=== PATIENT | male | born 1970 | race Caucasian/White ===

== ENCOUNTER 2019-04-17 12:35 | Inpatient (IN) | payer MEDICARE, OTHER ==
[2019-04-17 16:06] LABS: ADD MAN DIFF? NO
[2019-04-17 16:07] LABS: WHITE BLOOD COUNT 14.5 10^3/ul (4.8-10.8)
[2019-04-17 16:07] LABS: ABNORMAL IP MESSAGE 1; BASOPHILS % 0.1 % (0.0-2.0); HEMATOCRIT 53.2 % (42.0-52.0); HEMOGLOBIN 17.7 g/dl (14.0-18.0); LYMPHOCYTES # 0.4 10^3/ul (0.8-2.9); LYMPHOCYTES % 2.5 % (15.0-51.0); MEAN CORPUSCULAR HGB CONC 33.3 g/dl (32.0-37.0); MEAN CORPUSCULAR VOLUME 87.2 fl (82.0-101.0); MEAN PLATELET VOLUME 10.2 fl (7.4-10.4); MONOCYTE # 1.4 10^3/ul (0.3-0.9); MONOCYTES % 9.9 % (0.0-11.0); NEUTROPHIL # 12.6 10^3/ul (1.6-7.5); NEUTROPHILS % 86.8 % (39.0-77.0); PLATELET COUNT 260 10^3/UL (140-415); POSITIVE DIFF @See below; RED CELL DISTRIBUTION WIDTH 14.6 % (11.5-14.5)
[2019-04-17] MEDS: morphine 4 MG/ML VIAL IV (16:12)
[2019-04-17] MEDS: ONDANSETRON 4 MG INJ IV (16:12)
[2019-04-17 16:26] LABS: INR 1.19; PROTIME 15.2 Sec (11.9-14.9); PT RATIO 1.2
[2019-04-17 16:27] LABS: PARTIAL THROMBOPLASTIN TIME 28.2 Sec (23.0-35.0)
[2019-04-17 16:29] LABS: ALANINE AMINOTRANSFERASE 19 IU/L (13-69); ALBUMIN 4.4 g/dl (3.3-4.9); ALBUMIN/GLOBULIN RATIO 1.07; ALKALINE PHOSPHATASE 98 IU/L (42-121); ANION GAP 21 (5-13); ASPARTATE AMINO TRANSFERASE 25 IU/L (15-46); BILIRUBIN,INDIRECT 0.5 mg/dl (0-1.1); BILIRUBIN,TOTAL 0.5 mg/dl (0.2-1.3); BLOOD UREA NITROGEN 34 mg/dl (7-20); CALCIUM 9.7 mg/dl (8.4-10.2); CARBON DIOXIDE 18 mmol/L (21-31); CHLORIDE 107 mmol/L (97-110); CREATININE 2.31 mg/dl (0.61-1.24); Estimated GFR 30 mL/min (>60); GLUCOSE 175 mg/dl (70-220); LIPASE 116 U/L (23-300); POTASSIUM 3.8 mmol/L (3.5-5.1); SODIUM 146 mmol/L (135-144); TOTAL PROTEIN 8.5 g/dl (6.1-8.1)
[2019-04-17 16:41] LABS: TROPONIN-I 0.021 ng/ml (0.000-0.120)
[2019-04-17] MEDS ORDERED: ONDANSETRON 4 MG INJ IV (17:30)
[2019-04-17] MEDS ORDERED: ACETAMINOPHEN 325 MG TAB PO ×2 (17:30→18:30)
[2019-04-17] MEDS: SOD CHLORIDE 0.9% 1,000 ML IV ×2 (17:54→22:23)
[2019-04-17] MEDS ORDERED: NACL 0.9% 3 ML SYG IV (18:30)
[2019-04-17] MEDS ORDERED: hydrOXYzine HCL 25 MG TAB PO (18:30)
[2019-04-17] MEDS: QUETIAPINE 100 MG TAB NGT (19:04)
[2019-04-17] MEDS: DIVALPROEX (EC) 500 MG TAB PO (19:04)
[2019-04-17] MEDS: BENZTROPINE 1 MG TAB NGT (19:05)
[2019-04-17] MEDS: DEXTROSE 5%-0.45% NACL 1,000 ML IV (21:19)
[2019-04-17] MEDS: FAMOTIDINE 20 MG INJ IV (21:19)
[2019-04-17] MEDS: QUETIAPINE 25 MG TAB NGT (21:47)
[2019-04-17] MEDS: DIAZEPAM 5 MG TAB NGT (21:47)
[2019-04-18] MEDS: ONDANSETRON 4 MG INJ IV (02:14)
[2019-04-18] MEDS: morphine 2 MG INJ IV (02:15)
[2019-04-18 05:43] LABS: ADD MAN DIFF? NO
[2019-04-18 05:48] LABS: ABNORMAL IP MESSAGE 1; BASOPHILS % 0.2 % (0.0-2.0); HEMATOCRIT 42.2 % (42.0-52.0); HEMOGLOBIN 14.1 g/dl (14.0-18.0); LYMPHOCYTES # 0.2 10^3/ul (0.8-2.9); LYMPHOCYTES % 2.1 % (15.0-51.0); MEAN CORPUSCULAR HEMOGLOBIN 28.8 pg (29.0-33.0); MEAN CORPUSCULAR HGB CONC 33.4 g/dl (32.0-37.0); MEAN CORPUSCULAR VOLUME 86.1 fl (82.0-101.0); MEAN PLATELET VOLUME 10.2 fl (7.4-10.4); MONOCYTE # 2.2 10^3/ul (0.3-0.9); NEUTROPHIL # 8.3 10^3/ul (1.6-7.5); PLATELET COUNT 181 10^3/UL (140-415); POSITIVE DIFF @See below; RED CELL DISTRIBUTION WIDTH 14.9 % (11.5-14.5)
[2019-04-18 05:48] LABS: WHITE BLOOD COUNT 10.8 10^3/ul (4.8-10.8)
[2019-04-18 06:07] LABS: ALANINE AMINOTRANSFERASE 22 IU/L (13-69); ALBUMIN 2.5 g/dl (3.3-4.9); ALKALINE PHOSPHATASE 55 IU/L (42-121); ANION GAP 8 (5-13); ASPARTATE AMINO TRANSFERASE 21 IU/L (15-46); BILIRUBIN,INDIRECT 0.5 mg/dl (0-1.1); BILIRUBIN,TOTAL 0.5 mg/dl (0.2-1.3); BLOOD UREA NITROGEN 49 mg/dl (7-20); CALCIUM 7.1 mg/dl (8.4-10.2); CARBON DIOXIDE 20 mmol/L (21-31); CHLORIDE 117 mmol/L (97-110); CREATININE 1.49 mg/dl (0.61-1.24); Estimated GFR 50 mL/min (>60); GLUCOSE 99 mg/dl (70-220); MAGNESIUM 1.6 mg/dl (1.7-2.5); POTASSIUM 4.5 mmol/L (3.5-5.1); SODIUM 145 mmol/L (135-144); TOTAL PROTEIN 5.6 g/dl (6.1-8.1)
[2019-04-18 06:30] LABS: BAND NEUTROPHILS #M 6.3 10^3/ul (0.0-0.6); BAND NEUTROPHILS % (M) 59 % (0-4); LYMPHOCYTES #M 0.3 10^3/ul (0.8-2.9); LYMPHOCYTES % (M) 3 % (15-51); MONOCYTE #M 2.7 10^3/ul (0.3-0.9); MONOCYTES % (M) 25 % (0-11); PLATELET ESTIMATE NORMAL; REACTIVE LYMPHOCYTES #M 0.3 10^3/ul (0.0-0.0); REACTIVE LYMPHOCYTES% (M) 3 % (0-0); SEG NEUT #M 1.8 10^3/ul (1.6-7.5); SEGMENTED NEUTROPHILS (M) % 10 % (39-77); SMUDGE%M 11 % (0-0)
[2019-04-18 07:25] LABS: C-REACTIVE PROTEIN 38.8 mg/dl (0.0-0.9)
[2019-04-18] MEDS: ACETAMINOPHEN 1000MG/100ML IV 100 ML IVPB (08:00)
[2019-04-18] MEDS ORDERED: SOD CHLORIDE 0.9% 1,000 ML IV (08:00)
[2019-04-18] MEDS: PANTOPRAZOLE 40 MG INJ IV (08:00)
[2019-04-18 08:14] LABS: ERYTHROCYTE SEDIMENTATION RATE 22 mm/Hr (0-15)
[2019-04-18] MEDS: SOD CHLORIDE 0.9% 1,000 ML IV ×3 (08:30→14:42)
[2019-04-18] MEDS: CITALOPRAM 20 MG TAB NGT (09:00)
[2019-04-18] MEDS: BENZTROPINE 1 MG TAB NGT ×2 (09:00→20:31)
[2019-04-18] MEDS: QUETIAPINE 100 MG TAB NGT ×2 (09:00→20:31)
[2019-04-18] MEDS: DIAZEPAM 5 MG TAB NGT ×2 (09:00→20:31)
[2019-04-18] MEDS: DIVALPROEX (EC) 500 MG TAB PO ×2 (09:00→20:31)
[2019-04-18] MEDS: PIPER-TAZO 3.375 GM IV (PMX) 100 ML IVPB ×3 (11:57→21:38)
[2019-04-18 13:52] LABS: HEMATOCRIT 38.3 % (42.0-52.0)
[2019-04-18] MEDS: LORAZEPAM 2 MG INJ IV (14:00)
[2019-04-18] MEDS: MAGNESIUM SULFATE 2 GM/50 ML 50 ML IVPB ×2 (14:24→19:00)
[2019-04-18 17:17] LABS: LACTIC ACID 1.8 mmol/L (0.5-2.0)
[2019-04-18] MEDS: DEXTROSE 5%-0.45% NACL 1,000 ML IV ×2 (18:58→19:10)
[2019-04-18] MEDS: PANTOPRAZOLE IV 80 MG in SOD CHLORIDE 0.9% 100 ML IV (20:21)
[2019-04-18] MEDS: FAMOTIDINE 20 MG INJ IV (20:31)
[2019-04-18] MEDS: METHYLPREDNISOLONE 40 MG INJ IV (21:38)
[2019-04-19] MEDS: DEXTROSE 5%-0.45% NACL 1,000 ML IV ×2 (00:25→10:25)
[2019-04-19] MEDS: SOD CHLORIDE 0.9% 500 ML IV (04:55)
[2019-04-19] MEDS: LORAZEPAM 2 MG INJ IV ×2 (05:00→12:54)
[2019-04-19] MEDS: METHYLPREDNISOLONE 40 MG INJ IV ×3 (05:00→21:14)
[2019-04-19] MEDS: PIPER-TAZO 3.375 GM IV (PMX) 100 ML IVPB ×3 (05:08→21:14)
[2019-04-19 05:42] LABS: ADD MAN DIFF? NO
[2019-04-19 05:49] LABS: ABNORMAL IP MESSAGE 1; HEMATOCRIT 39.3 % (42.0-52.0); HEMOGLOBIN 13.5 g/dl (14.0-18.0); MEAN CORPUSCULAR HGB CONC 34.4 g/dl (32.0-37.0); MEAN CORPUSCULAR VOLUME 84.3 fl (82.0-101.0); MEAN PLATELET VOLUME 10.5 fl (7.4-10.4); PLATELET COUNT 175 10^3/UL (140-415); POSITIVE DIFF @See below; RED BLOOD COUNT 4.66 10^6/ul (4.70-6.10); RED CELL DISTRIBUTION WIDTH 14.9 % (11.5-14.5)
[2019-04-19 05:49] LABS: WHITE BLOOD COUNT 6.8 10^3/ul (4.8-10.8)
[2019-04-19 06:07] LABS: ALANINE AMINOTRANSFERASE 36 IU/L (13-69); ALBUMIN 2.9 g/dl (3.3-4.9); ALBUMIN/GLOBULIN RATIO 0.85; ALKALINE PHOSPHATASE 67 IU/L (42-121); ANION GAP 9 (5-13); ASPARTATE AMINO TRANSFERASE 39 IU/L (15-46); BILIRUBIN,INDIRECT 0.6 mg/dl (0-1.1); BILIRUBIN,TOTAL 0.6 mg/dl (0.2-1.3); BLOOD UREA NITROGEN 36 mg/dl (7-20); CALCIUM 7.3 mg/dl (8.4-10.2); CARBON DIOXIDE 21 mmol/L (21-31); CHLORIDE 119 mmol/L (97-110); CREATININE 1.05 mg/dl (0.61-1.24); Estimated GFR > 60 mL/min (>60); GLUCOSE 110 mg/dl (70-220); MAGNESIUM 2.7 mg/dl (1.7-2.5); SODIUM 149 mmol/L (135-144); TOTAL PROTEIN 6.3 g/dl (6.1-8.1)
[2019-04-19] MEDS: PANTOPRAZOLE IV 80 MG in SOD CHLORIDE 0.9% 100 ML IV ×2 (06:26→13:30)
[2019-04-19 07:17] LABS: BAND NEUTROPHILS #M 3.6 10^3/ul (0.0-0.6); BAND NEUTROPHILS % (M) 54 % (0-4); BURR CELLS 1+ (0-0); ERYTHROBLAST% (NRBC) (M) 1 % (0-0); LYMPHOCYTES #M 1.2 10^3/ul (0.8-2.9); LYMPHOCYTES % (M) 18 % (15-51); METAMYELOCYTES #M 0.8 10^3/ul (0.0-0.0); METAMYELOCYTES %M 12 % (0-0); MONOCYTE #M 0.8 10^3/ul (0.3-0.9); MONOCYTES % (M) 12 % (0-11); MYELOCYTES #M 0.1 10^3/ul (0.0-0.0); MYELOCYTES % (M) 2 % (0-0); PLATELET ESTIMATE NORMAL; POIKILOCYTOSIS 1+ (0-0); SEG NEUT #M 0.4 10^3/ul (1.6-7.5); SEGMENTED NEUTROPHILS (M) % 2 % (39-77); SMUDGE%M 12 % (0-0); SPHEROCYTES 1+ (0-0)
[2019-04-19] MEDS: CITALOPRAM 20 MG TAB NGT ×2 (09:00→09:40)
[2019-04-19] MEDS: QUETIAPINE 100 MG TAB NGT ×3 (09:00→20:54)
[2019-04-19] MEDS: BENZTROPINE 1 MG TAB NGT ×3 (09:00→20:54)
[2019-04-19] MEDS: DIAZEPAM 5 MG TAB NGT ×3 (09:00→20:54)
[2019-04-19] MEDS: DIVALPROEX (EC) 500 MG TAB PO ×3 (09:00→20:54)
[2019-04-19 09:09] LABS: ADD UMIC YES; UR ASCORBIC ACID NEGATIVE (NEGATIVE); UR BILIRUBIN (Dip) NEGATIVE (NEGATIVE); UR BLOOD (Dip) NEGATIVE (NEGATIVE); UR CLARITY SLIGHTLY CLOUDY (CLEAR); UR COLOR AMBER (YELLOW); UR GLUCOSE (Dip) NEGATIVE (NEGATIVE); UR KETONES (Dip) TRACE mg/dL (NEGATIVE); UR LEUKOCYTE ESTERASE (Dip) NEGATIVE Leu/ul (NEGATIVE); UR NITRITE (Dip) NEGATIVE (NEGATIVE); UR RBC 1 /HPF (0-5); UR SPECIFIC GRAVITY (Dip) 1.029 (1.003-1.030); UR SQUAMOUS EPITHELIAL CELL FEW /HPF (FEW); UR TOTAL PROTEIN (Dip) 1+ mg/dl (NEGATIVE); UR UROBILINOGEN (Dip) 1+ mg/dL (NEGATIVE); UR WBC 2 /HPF (0-5)
[2019-04-19 09:39] LABS: CREATININE,URINE RANDOM 118.19 mg/dl (20-370); PROTEIN/CREAT RATIO 0.31 RATIO
[2019-04-19 09:41] LABS: CREATININE,URINE RANDOM 116.03 mg/dl (20-370)
[2019-04-19 09:41] LABS: SODIUM,URINE RANDOM 20 mmol/L (30-90)
[2019-04-19 12:29] LABS: HEMOGLOBIN 13.3 g/dl (14.0-18.0)
[2019-04-19] MEDS: SOD CHLORIDE 0.9% 1,000 ML IV (14:52)
[2019-04-19] MEDS: PANTOPRAZOLE IV 80 MG in DEXTROSE 5% 100 ML IV (14:53)
[2019-04-19] MEDS: DEXTROSE 5% 1,000 ML IV (15:50)
[2019-04-19] MEDS: SOD CHLORIDE 0.9% 250 ML IV (16:03)
[2019-04-19 19:56] LABS: HEMOGLOBIN 12.7 g/dl (14.0-18.0)
[2019-04-19 20:13] LABS: ANION GAP 5 (5-13); BLOOD UREA NITROGEN 34 mg/dl (7-20); CALCIUM 7.6 mg/dl (8.4-10.2); CARBON DIOXIDE 24 mmol/L (21-31); CHLORIDE 117 mmol/L (97-110); Estimated GFR > 60 mL/min (>60); GLUCOSE 131 mg/dl (70-220); POTASSIUM 3.7 mmol/L (3.5-5.1); SODIUM 146 mmol/L (135-144)
[2019-04-20] MEDS: PANTOPRAZOLE IV 80 MG in DEXTROSE 5% 100 ML IV ×2 (01:20→12:22)
[2019-04-20 05:44] LABS: ABNORMAL IP MESSAGE 1; HEMATOCRIT 36.9 % (42.0-52.0); HEMOGLOBIN 12.3 g/dl (14.0-18.0); MEAN CORPUSCULAR HEMOGLOBIN 28.5 pg (29.0-33.0); MEAN CORPUSCULAR HGB CONC 33.3 g/dl (32.0-37.0); MEAN CORPUSCULAR VOLUME 85.4 fl (82.0-101.0); MEAN PLATELET VOLUME 10.4 fl (7.4-10.4); PLATELET COUNT 185 10^3/UL (140-415); POSITIVE DIFF @See below; RED BLOOD COUNT 4.32 10^6/ul (4.70-6.10); RED CELL DISTRIBUTION WIDTH 15.3 % (11.5-14.5)
[2019-04-20 05:44] LABS: WHITE BLOOD COUNT 5.1 10^3/ul (4.8-10.8)
[2019-04-20 06:08] LABS: ALANINE AMINOTRANSFERASE 44 IU/L (13-69); ALBUMIN 2.9 g/dl (3.3-4.9); ALKALINE PHOSPHATASE 60 IU/L (42-121); ANION GAP 3 (5-13); ASPARTATE AMINO TRANSFERASE 30 IU/L (15-46); BILIRUBIN,INDIRECT 0.7 mg/dl (0-1.1); BILIRUBIN,TOTAL 0.7 mg/dl (0.2-1.3); BLOOD UREA NITROGEN 32 mg/dl (7-20); CALCIUM 7.8 mg/dl (8.4-10.2); CARBON DIOXIDE 28 mmol/L (21-31); CHLORIDE 116 mmol/L (97-110); CREATININE 0.88 mg/dl (0.61-1.24); Estimated GFR > 60 mL/min (>60); GLUCOSE 158 mg/dl (70-220); POTASSIUM 3.7 mmol/L (3.5-5.1); SODIUM 147 mmol/L (135-144); TOTAL PROTEIN 6.5 g/dl (6.1-8.1)
[2019-04-20 06:14] LABS: ADD MAN DIFF? YES
[2019-04-20] MEDS: METHYLPREDNISOLONE 40 MG INJ IV ×3 (06:23→21:47)
[2019-04-20] MEDS: PIPER-TAZO 3.375 GM IV (PMX) 100 ML IVPB ×3 (06:24→21:49)
[2019-04-20] MEDS: DEXTROSE 5% 1,000 ML IV ×3 (08:16→19:17)
[2019-04-20] MEDS: CITALOPRAM 20 MG TAB NGT (08:16)
[2019-04-20] MEDS: BENZTROPINE 1 MG TAB NGT ×2 (08:16→21:48)
[2019-04-20] MEDS: QUETIAPINE 100 MG TAB NGT ×2 (08:16→21:48)
[2019-04-20] MEDS: DIAZEPAM 5 MG TAB NGT ×2 (08:17→21:48)
[2019-04-20] MEDS: DIVALPROEX (EC) 500 MG TAB PO (08:17)
[2019-04-20 10:07] LABS: ANISOCYTOSIS 1+ (0-0); BAND NEUTROPHILS #M 2.6 10^3/ul (0.0-0.6); BAND NEUTROPHILS % (M) 51 % (0-4); GIANT THROMBO% (M) 1 % (0-0); LYMPHOCYTES % (M) 1 % (15-51); METAMYELOCYTES #M 0.5 10^3/ul (0.0-0.0); METAMYELOCYTES %M 10 % (0-0); MONOCYTE #M 1.1 10^3/ul (0.3-0.9); MONOCYTES % (M) 23 % (0-11); MYELOCYTES #M 0.4 10^3/ul (0.0-0.0); MYELOCYTES % (M) 8 % (0-0); PLATELET ESTIMATE NORMAL; POIKILOCYTOSIS 1+ (0-0); POLYCHROMASIA 1+ (0-0); REACTIVE LYMPHOCYTES #M 0.1 10^3/ul (0.0-0.0); REACTIVE LYMPHOCYTES% (M) 2 % (0-0); SEG NEUT #M 0.4 10^3/ul (1.6-7.5); SEGMENTED NEUTROPHILS (M) % 5 % (39-77); SMUDGE%M 17 % (0-0); TARGET CELLS 1+ (0-0)
[2019-04-20 10:11] LABS: TOXIC GRANULATION 2+ (0-0)
[2019-04-20] MEDS: IOHEXOL 300MG/ML 150 ML BTL ×2 (13:23)
[2019-04-20] MEDS: PANTOPRAZOLE IV 80 MG in SOD CHLORIDE 0.9% 100 ML IV (16:57)
[2019-04-20] MEDS ORDERED: PANTOPRAZOLE 40 MG INJ IV (18:00)
[2019-04-20 19:10] LABS: SODIUM 145 mmol/L (135-144)
[2019-04-20] MEDS: DIVALPROEX SPRINKLE 125 MG CAP PO (21:46)
[2019-04-21] MEDS: PANTOPRAZOLE IV 80 MG in SOD CHLORIDE 0.9% 100 ML IV ×3 (03:34→21:00)
[2019-04-21] MEDS: PIPER-TAZO 3.375 GM IV (PMX) 100 ML IVPB ×3 (05:38→22:34)
[2019-04-21] MEDS: DEXTROSE 5% 1,000 ML IV (05:38)
[2019-04-21] MEDS: METHYLPREDNISOLONE 40 MG INJ IV ×3 (05:38→22:33)
[2019-04-21 05:47] LABS: ABNORMAL IP MESSAGE 1; HEMATOCRIT 35.1 % (42.0-52.0); HEMOGLOBIN 11.6 g/dl (14.0-18.0); MEAN CORPUSCULAR HEMOGLOBIN 28.8 pg (29.0-33.0); MEAN CORPUSCULAR VOLUME 87.1 fl (82.0-101.0); MEAN PLATELET VOLUME 10.6 fl (7.4-10.4); PLATELET COUNT 173 10^3/UL (140-415); POSITIVE DIFF @See below; RED BLOOD COUNT 4.03 10^6/ul (4.70-6.10); RED CELL DISTRIBUTION WIDTH 15.5 % (11.5-14.5)
[2019-04-21 05:47] LABS: WHITE BLOOD COUNT 8.5 10^3/ul (4.8-10.8)
[2019-04-21 05:49] LABS: ADD MAN DIFF? YES
[2019-04-21 06:12] LABS: ALANINE AMINOTRANSFERASE 50 IU/L (13-69); ALBUMIN 2.8 g/dl (3.3-4.9); ALBUMIN/GLOBULIN RATIO 0.84; ALKALINE PHOSPHATASE 68 IU/L (42-121); ANION GAP 3 (5-13); ASPARTATE AMINO TRANSFERASE 30 IU/L (15-46); BILIRUBIN,INDIRECT 0.6 mg/dl (0-1.1); BILIRUBIN,TOTAL 0.6 mg/dl (0.2-1.3); BLOOD UREA NITROGEN 31 mg/dl (7-20); CALCIUM 8.1 mg/dl (8.4-10.2); CARBON DIOXIDE 31 mmol/L (21-31); CHLORIDE 111 mmol/L (97-110); CREATININE 0.87 mg/dl (0.61-1.24); Estimated GFR > 60 mL/min (>60); GLUCOSE 139 mg/dl (70-220); MAGNESIUM 2.7 mg/dl (1.7-2.5); POTASSIUM 3.8 mmol/L (3.5-5.1); SODIUM 145 mmol/L (135-144); TOTAL PROTEIN 6.1 g/dl (6.1-8.1)
[2019-04-21] MEDS ORDERED: EPHEDrine 25 MG/5 ML SYG (07:00)
[2019-04-21] MEDS: DIAZEPAM 5 MG TAB NGT ×2 (08:05→22:33)
[2019-04-21] MEDS: DIVALPROEX SPRINKLE 125 MG CAP PO ×2 (08:05→22:34)
[2019-04-21] MEDS: BENZTROPINE 1 MG TAB NGT ×2 (08:05→22:33)
[2019-04-21] MEDS: CITALOPRAM 20 MG TAB NGT (08:05)
[2019-04-21] MEDS: QUETIAPINE 100 MG TAB NGT ×2 (08:05→22:33)
[2019-04-21 09:29] LABS: ANISOCYTOSIS 1+ (0-0); BAND NEUTROPHILS #M 5.6 10^3/ul (0.0-0.6); BAND NEUTROPHILS % (M) 66 % (0-4); BURR CELLS 1+ (0-0); GIANT THROMBO% (M) 3 % (0-0); LYMPHOCYTES #M 0.3 10^3/ul (0.8-2.9); LYMPHOCYTES % (M) 4 % (15-51); METAMYELOCYTES #M 0.4 10^3/ul (0.0-0.0); METAMYELOCYTES %M 5 % (0-0); MONOCYTE #M 1.3 10^3/ul (0.3-0.9); MONOCYTES % (M) 16 % (0-11); MYELOCYTES #M 0.1 10^3/ul (0.0-0.0); MYELOCYTES % (M) 2 % (0-0); PLATELET ESTIMATE NORMAL; POIKILOCYTOSIS 2+ (0-0); POLYCHROMASIA 1+ (0-0); PROMYELOCYTES % (M) 1 % (0-0); SEGMENTED NEUTROPHILS (M) % 6 % (39-77); SMUDGE%M 84 % (0-0); TARGET CELLS 1+ (0-0); TOXIC GRANULATION 1+ (0-0)
[2019-04-21] MEDS: BALSAM PERU/CASTOR OIL 60 GM TUBE TOP ×2 (15:00→22:35)
[2019-04-21] MEDS ORDERED: PROPOFOL 20 ML (15:08)
[2019-04-21] MEDS ORDERED: ROPIVACAINE 0.5 % 30 ML VIAL (15:08)
[2019-04-21] MEDS ORDERED: ROCURONIUM 50 MG INJ ×2 (15:08→16:17)
[2019-04-21] MEDS ORDERED: METOCLOPRAMIDE 10 MG INJ (15:08)
[2019-04-21] MEDS ORDERED: ONDANSETRON 4 MG INJ (15:08)
[2019-04-21] MEDS ORDERED: MIDAZOLAM 1 MG/ML 2 ML INJ (15:12)
[2019-04-21] MEDS ORDERED: PHENYLephrine (100 MCG/ML) 10ML SYG (16:09)
[2019-04-21] MEDS ORDERED: SUCCINYLCHOLINE CHLORIDE 100 MG/5 ML SYG IV (16:10)
[2019-04-21] MEDS ORDERED: HYDROmorphONE 2 MG/ML SYG (16:47)
[2019-04-21] MEDS ORDERED: ALBUMIN HUMAN 5% 250 ML (17:50)
[2019-04-21] MEDS ORDERED: GLYCOPYRROLATE 0.4 MG INJ (18:20)
[2019-04-21] MEDS ORDERED: NEOSTIGMINE 3 MG/3 ML SYRINGE (18:20)
[2019-04-21] MEDS ORDERED: FENTAnyl 50 MCG/ML VIAL IV ×2 (18:30)
[2019-04-21] MEDS ORDERED: MIDAZOLAM 1 MG/ML 2 ML INJ IV (18:30)
[2019-04-21] MEDS ORDERED: DIPHENHYDRAMINE 50 MG INJ IV ×2 (18:30→19:00)
[2019-04-21] MEDS ORDERED: EPHEDrine 25 MG/5 ML SYG IV (18:30)
[2019-04-21] MEDS ORDERED: MEPERIDINE 25 MG INJ IV (18:30)
[2019-04-21] MEDS ORDERED: ONDANSETRON 4 MG INJ IV ×2 (18:30→19:00)
[2019-04-21] MEDS ORDERED: HYDROmorphONE 1 MG/5 ML IV SYRINGE IV ×3 (18:30)
[2019-04-21] MEDS ORDERED: METOCLOPRAMIDE 10 MG INJ IV (19:00)
[2019-04-21] MEDS ORDERED: HYDROmorphONE 0.5 MG/0.5 ML SYG IV (19:00)
[2019-04-21] MEDS ORDERED: KETOROLAC 30 MG INJ IV (22:00)
[2019-04-21] MEDS: LACTATED RINGER'S 1,000 ML IV (22:35)
[2019-04-21] MEDS: D5-NS + KCL 20 MEQ 1,000 ML IV (22:35)
[2019-04-21] MEDS: HEPARIN 5,000 UNIT/1 ML VIAL SC (22:48)
[2019-04-22] MEDS: PANTOPRAZOLE IV 80 MG in SOD CHLORIDE 0.9% 100 ML IV ×2 (04:34→04:36)
[2019-04-22] MEDS: D5-NS + KCL 20 MEQ 1,000 ML IV (04:36)
[2019-04-22 06:21] LABS: ADD MAN DIFF? NO
[2019-04-22 06:29] LABS: WHITE BLOOD COUNT 10.1 10^3/ul (4.8-10.8)
[2019-04-22 06:29] LABS: ABNORMAL IP MESSAGE 1; HEMATOCRIT 32.5 % (42.0-52.0); HEMOGLOBIN 10.7 g/dl (14.0-18.0); LYMPHOCYTES # 0.3 10^3/ul (0.8-2.9); LYMPHOCYTES % 2.8 % (15.0-51.0); MEAN CORPUSCULAR HEMOGLOBIN 28.5 pg (29.0-33.0); MEAN CORPUSCULAR HGB CONC 32.9 g/dl (32.0-37.0); MEAN CORPUSCULAR VOLUME 86.7 fl (82.0-101.0); MEAN PLATELET VOLUME 11.1 fl (7.4-10.4); MONOCYTE # 0.7 10^3/ul (0.3-0.9); MONOCYTES % 7.1 % (0.0-11.0); NEUTROPHIL # 8.8 10^3/ul (1.6-7.5); NEUTROPHILS % 87.7 % (39.0-77.0); PLATELET COUNT 165 10^3/UL (140-415); POSITIVE DIFF @See below; RED BLOOD COUNT 3.75 10^6/ul (4.70-6.10); RED CELL DISTRIBUTION WIDTH 15.9 % (11.5-14.5)
[2019-04-22] MEDS: METHYLPREDNISOLONE 40 MG INJ IV ×3 (06:34→22:53)
[2019-04-22] MEDS: PIPER-TAZO 3.375 GM IV (PMX) 100 ML IVPB ×3 (06:35→22:52)
[2019-04-22 07:09] LABS: ALBUMIN 2.2 g/dl (3.3-4.9); ANION GAP 3 (5-13); BLOOD UREA NITROGEN 24 mg/dl (7-20); CALCIUM 7.7 mg/dl (8.4-10.2); CARBON DIOXIDE 29 mmol/L (21-31); CHLORIDE 115 mmol/L (97-110); CREATININE 0.75 mg/dl (0.61-1.24); GLUCOSE 149 mg/dl (70-220); POTASSIUM 3.9 mmol/L (3.5-5.1); SODIUM 147 mmol/L (135-144)
[2019-04-22 09:36] LABS: BAND NEUTROPHILS #M 4.3 10^3/ul (0.0-0.6); BAND NEUTROPHILS % (M) 43 % (0-4); LYMPHOCYTES #M 0.2 10^3/ul (0.8-2.9); LYMPHOCYTES % (M) 2 % (15-51); METAMYELOCYTES #M 0.4 10^3/ul (0.0-0.0); METAMYELOCYTES %M 4 % (0-0); MONOCYTE #M 0.6 10^3/ul (0.3-0.9); MONOCYTES % (M) 6 % (0-11); MYELOCYTES #M 0.1 10^3/ul (0.0-0.0); MYELOCYTES % (M) 1 % (0-0); PLATELET ESTIMATE NORMAL; SEG NEUT #M 4.9 10^3/ul (1.6-7.5); SEGMENTED NEUTROPHILS (M) % 44 % (39-77); SMUDGE%M 14 % (0-0); TOXIC GRANULATION 1+ (0-0)
[2019-04-22] MEDS: D5W-0.45 NACL + KCL 20 MEQ 1,000 ML IV ×2 (09:47→22:54)
[2019-04-22] MEDS: QUETIAPINE 100 MG TAB NGT ×2 (09:47→22:53)
[2019-04-22] MEDS: BENZTROPINE 1 MG TAB NGT ×2 (09:47→22:53)
[2019-04-22] MEDS: CITALOPRAM 20 MG TAB NGT (09:47)
[2019-04-22] MEDS: DIAZEPAM 5 MG TAB NGT ×2 (09:48→22:53)
[2019-04-22] MEDS: DIVALPROEX SPRINKLE 125 MG CAP PO ×2 (09:48→22:54)
[2019-04-22] MEDS: BALSAM PERU/CASTOR OIL 60 GM TUBE TOP ×2 (09:49→22:53)
[2019-04-22] MEDS: HEPARIN 5,000 UNIT/1 ML VIAL SC ×2 (09:59→23:54)
[2019-04-22] MEDS: morphine 2 MG INJ IV (18:59)
[2019-04-23] MEDS: PANTOPRAZOLE IV 80 MG in SOD CHLORIDE 0.9% 100 ML IV ×2 (03:00→13:10)
[2019-04-23] MEDS: METHYLPREDNISOLONE 40 MG INJ IV ×3 (05:41→23:05)
[2019-04-23] MEDS: PIPER-TAZO 3.375 GM IV (PMX) 100 ML IVPB ×3 (05:41→23:08)
[2019-04-23 05:59] LABS: ADD MAN DIFF? NO
[2019-04-23 06:08] LABS: WHITE BLOOD COUNT 12.8 10^3/ul (4.8-10.8)
[2019-04-23 06:08] LABS: ABNORMAL IP MESSAGE 1; BASOPHIL # 0.1 10^3/ul (0.0-0.1); BASOPHILS % 0.5 % (0.0-2.0); HEMATOCRIT 27.6 % (42.0-52.0); HEMOGLOBIN 9.1 g/dl (14.0-18.0); LYMPHOCYTES # 0.5 10^3/ul (0.8-2.9); LYMPHOCYTES % 3.7 % (15.0-51.0); MEAN CORPUSCULAR HEMOGLOBIN 28.8 pg (29.0-33.0); MEAN CORPUSCULAR VOLUME 87.3 fl (82.0-101.0); MEAN PLATELET VOLUME 11.1 fl (7.4-10.4); MONOCYTE # 1.3 10^3/ul (0.3-0.9); MONOCYTES % 9.8 % (0.0-11.0); NEUTROPHIL # 10.1 10^3/ul (1.6-7.5); NEUTROPHILS % 78.9 % (39.0-77.0); PLATELET COUNT 153 10^3/UL (140-415); POSITIVE DIFF @See below; RED BLOOD COUNT 3.16 10^6/ul (4.70-6.10); RED CELL DISTRIBUTION WIDTH 15.9 % (11.5-14.5)
[2019-04-23 06:45] LABS: ALBUMIN 2.3 g/dl (3.3-4.9); ANION GAP 1 (5-13); BLOOD UREA NITROGEN 17 mg/dl (7-20); CARBON DIOXIDE 30 mmol/L (21-31); CHLORIDE 114 mmol/L (97-110); CREATININE 0.69 mg/dl (0.61-1.24); GLUCOSE 120 mg/dl (70-220); PHOSPHORUS 3.2 mg/dl (2.5-4.9); POTASSIUM 3.9 mmol/L (3.5-5.1); SODIUM 145 mmol/L (135-144)
[2019-04-23] MEDS: DIAZEPAM 5 MG TAB NGT ×2 (08:56→23:13)
[2019-04-23] MEDS: QUETIAPINE 100 MG TAB NGT ×2 (08:57→23:07)
[2019-04-23] MEDS: DIVALPROEX SPRINKLE 125 MG CAP PO ×2 (08:57→23:07)
[2019-04-23] MEDS: CITALOPRAM 20 MG TAB NGT (08:57)
[2019-04-23] MEDS: BENZTROPINE 1 MG TAB NGT ×2 (08:57→23:07)
[2019-04-23] MEDS: HEPARIN 5,000 UNIT/1 ML VIAL SC ×2 (08:59→23:22)
[2019-04-23] MEDS: BALSAM PERU/CASTOR OIL 60 GM TUBE TOP ×2 (09:33→23:08)
[2019-04-23] MEDS: D5W-0.45 NACL + KCL 20 MEQ 1,000 ML IV (13:12)
[2019-04-23] MEDS: PANTOPRAZOLE 40 MG INJ IV (18:03)
[2019-04-24] MEDS: D5W-0.45 NACL + KCL 20 MEQ 1,000 ML IV ×2 (01:00→06:29)
[2019-04-24 05:32] LABS: ABNORMAL IP MESSAGE 1; HEMATOCRIT 27.6 % (42.0-52.0); MEAN CORPUSCULAR HEMOGLOBIN 28.8 pg (29.0-33.0); MEAN CORPUSCULAR HGB CONC 32.6 g/dl (32.0-37.0); MEAN CORPUSCULAR VOLUME 88.2 fl (82.0-101.0); MEAN PLATELET VOLUME 10.7 fl (7.4-10.4); PLATELET COUNT 186 10^3/UL (140-415); POSITIVE DIFF @See below; RED BLOOD COUNT 3.13 10^6/ul (4.70-6.10); RED CELL DISTRIBUTION WIDTH 15.9 % (11.5-14.5)
[2019-04-24 06:04] LABS: ALBUMIN 2.3 g/dl (3.3-4.9); ANION GAP 4 (5-13); BLOOD UREA NITROGEN 15 mg/dl (7-20); CALCIUM 8.5 mg/dl (8.4-10.2); CARBON DIOXIDE 28 mmol/L (21-31); CHLORIDE 109 mmol/L (97-110); CREATININE 0.63 mg/dl (0.61-1.24); GLUCOSE 114 mg/dl (70-220); MAGNESIUM 1.7 mg/dl (1.7-2.5); PHOSPHORUS 4.1 mg/dl (2.5-4.9); POTASSIUM 4.2 mmol/L (3.5-5.1); SODIUM 141 mmol/L (135-144)
[2019-04-24 06:08] LABS: ADD MAN DIFF? YES
[2019-04-24] MEDS: METHYLPREDNISOLONE 40 MG INJ IV ×3 (06:28→21:25)
[2019-04-24] MEDS: PIPER-TAZO 3.375 GM IV (PMX) 100 ML IVPB ×3 (06:29→21:21)
[2019-04-24] MEDS: PANTOPRAZOLE 40 MG INJ IV ×2 (06:29→17:13)
[2019-04-24 07:55] LABS: BAND NEUTROPHILS #M 1.8 10^3/ul (0.0-0.6); BAND NEUTROPHILS % (M) 13 % (0-4); BASOPHIL #M 0.1 10^3/ul (0.0-0.0); BASOPHILS % (M) 1 % (0-2); GIANT THROMBO% (M) 1 % (0-0); LYMPHOCYTES #M 0.2 10^3/ul (0.8-2.9); LYMPHOCYTES % (M) 2 % (15-51); MONOCYTE #M 0.5 10^3/ul (0.3-0.9); MONOCYTES % (M) 4 % (0-11); PLATELET ESTIMATE NORMAL; POIKILOCYTOSIS 1+ (0-0); POLYCHROMASIA 1+ (0-0); PROMYELOCYTES #M 0.1 10^3/ul (0-0); PROMYELOCYTES % (M) 1 % (0-0); SEG NEUT #M 11.3 10^3/ul (1.6-7.5); SEGMENTED NEUTROPHILS (M) % 79 % (39-77); SMUDGE%M 15 % (0-0); TARGET CELLS 1+ (0-0); TOXIC GRANULATION 1+ (0-0)
[2019-04-24] MEDS: DIAZEPAM 5 MG TAB NGT ×2 (10:45→21:25)
[2019-04-24] MEDS: DIVALPROEX SPRINKLE 125 MG CAP PO ×2 (10:46→21:25)
[2019-04-24] MEDS: BENZTROPINE 1 MG TAB NGT ×2 (10:46→21:25)
[2019-04-24] MEDS: BALSAM PERU/CASTOR OIL 60 GM TUBE TOP ×2 (10:47→21:26)
[2019-04-24] MEDS: CITALOPRAM 20 MG TAB NGT (10:47)
[2019-04-24] MEDS: QUETIAPINE 100 MG TAB NGT ×2 (10:47→21:25)
[2019-04-24] MEDS: HEPARIN 5,000 UNIT/1 ML VIAL SC ×2 (10:50→22:01)
[2019-04-25] MEDS: D5W-0.45 NACL + KCL 20 MEQ 1,000 ML IV ×3 (02:32→22:40)
[2019-04-25] MEDS: METHYLPREDNISOLONE 40 MG INJ IV (05:17)
[2019-04-25] MEDS: PIPER-TAZO 3.375 GM IV (PMX) 100 ML IVPB ×3 (05:17→22:18)
[2019-04-25] MEDS: PANTOPRAZOLE 40 MG INJ IV (05:17)
[2019-04-25 06:39] LABS: ABNORMAL IP MESSAGE 1; HEMATOCRIT 28.5 % (42.0-52.0); HEMOGLOBIN 9.3 g/dl (14.0-18.0); MEAN CORPUSCULAR HEMOGLOBIN 28.6 pg (29.0-33.0); MEAN CORPUSCULAR HGB CONC 32.6 g/dl (32.0-37.0); MEAN CORPUSCULAR VOLUME 87.7 fl (82.0-101.0); MEAN PLATELET VOLUME 10.8 fl (7.4-10.4); PLATELET COUNT 251 10^3/UL (140-415); POSITIVE DIFF @See below; RED BLOOD COUNT 3.25 10^6/ul (4.70-6.10); RED CELL DISTRIBUTION WIDTH 15.5 % (11.5-14.5)
[2019-04-25 06:39] LABS: WHITE BLOOD COUNT 11.2 10^3/ul (4.8-10.8)
[2019-04-25 06:48] LABS: ADD MAN DIFF? YES
[2019-04-25 07:19] LABS: C-REACTIVE PROTEIN 15.8 mg/dl (0.0-0.9)
[2019-04-25 07:27] LABS: ANION GAP 1 (5-13); BLOOD UREA NITROGEN 14 mg/dl (7-20); CALCIUM 8.5 mg/dl (8.4-10.2); CARBON DIOXIDE 32 mmol/L (21-31); CHLORIDE 103 mmol/L (97-110); CREATININE 0.66 mg/dl (0.61-1.24); Estimated GFR > 60 mL/min (>60); GLUCOSE 114 mg/dl (70-220); MAGNESIUM 1.6 mg/dl (1.7-2.5); PHOSPHORUS 4.5 mg/dl (2.5-4.9); POTASSIUM 4.2 mmol/L (3.5-5.1); SODIUM 136 mmol/L (135-144)
[2019-04-25 07:43] LABS: ERYTHROCYTE SEDIMENTATION RATE 95 mm/Hr (0-15)
[2019-04-25 07:46] LABS: ANISOCYTOSIS 1+ (0-0); BAND NEUTROPHILS #M 3.4 10^3/ul (0.0-0.6); BAND NEUTROPHILS % (M) 31 % (0-4); GIANT THROMBO% (M) 2 % (0-0); LYMPHOCYTES #M 0.1 10^3/ul (0.8-2.9); LYMPHOCYTES % (M) 1 % (15-51); METAMYELOCYTES #M 0.1 10^3/ul (0.0-0.0); METAMYELOCYTES %M 1 % (0-0); MONOCYTE #M 0.5 10^3/ul (0.3-0.9); MONOCYTES % (M) 5 % (0-11); MYELOCYTES #M 0.5 10^3/ul (0.0-0.0); MYELOCYTES % (M) 5 % (0-0); PLATELET ESTIMATE NORMAL; POIKILOCYTOSIS 1+ (0-0); SEG NEUT #M 6.8 10^3/ul (1.6-7.5); SEGMENTED NEUTROPHILS (M) % 57 % (39-77); SMUDGE%M 7 % (0-0)
[2019-04-25] MEDS: QUETIAPINE 100 MG TAB NGT ×2 (10:49→22:19)
[2019-04-25] MEDS: BENZTROPINE 1 MG TAB NGT ×2 (10:49→22:20)
[2019-04-25] MEDS: CITALOPRAM 20 MG TAB NGT (10:49)
[2019-04-25] MEDS: DIVALPROEX SPRINKLE 125 MG CAP PO ×2 (10:50→22:19)
[2019-04-25] MEDS: HEPARIN 5,000 UNIT/1 ML VIAL SC ×2 (11:00→22:24)
[2019-04-25] MEDS: BALSAM PERU/CASTOR OIL 60 GM TUBE TOP ×2 (14:44→22:19)
[2019-04-25] MEDS: DIAZEPAM 5 MG TAB NGT ×2 (14:45→22:18)
[2019-04-25] MEDS: MESALAMINE (SR) 250 MG CAP PO ×3 (14:45→22:19)
[2019-04-25] MEDS: LANSOPRAZOLE 30 MG CAP NGT (19:04)
[2019-04-25] MEDS: predniSONE 10 MG TAB PO (22:19)
[2019-04-26] MEDS: PIPER-TAZO 3.375 GM IV (PMX) 100 ML IVPB (06:00)
[2019-04-26] MEDS: LANSOPRAZOLE 30 MG CAP NGT ×2 (06:11→18:00)
[2019-04-26 06:51] LABS: ABNORMAL IP MESSAGE 1; HEMATOCRIT 34.4 % (42.0-52.0); HEMOGLOBIN 11.3 g/dl (14.0-18.0); MEAN CORPUSCULAR HGB CONC 32.8 g/dl (32.0-37.0); MEAN CORPUSCULAR VOLUME 88.2 fl (82.0-101.0); MEAN PLATELET VOLUME 10.7 fl (7.4-10.4); PLATELET COUNT 375 10^3/UL (140-415); POSITIVE DIFF @See below; RED CELL DISTRIBUTION WIDTH 15.7 % (11.5-14.5)
[2019-04-26 06:51] LABS: WHITE BLOOD COUNT 24.9 10^3/ul (4.8-10.8)
[2019-04-26 07:00] LABS: ADD MAN DIFF? YES
[2019-04-26 07:19] LABS: BLOOD UREA NITROGEN 19 mg/dl (7-20); CALCIUM 8.3 mg/dl (8.4-10.2); CARBON DIOXIDE 31 mmol/L (21-31); CREATININE 0.72 mg/dl (0.61-1.24); Estimated GFR > 60 mL/min (>60); GLUCOSE 157 mg/dl (70-220); MAGNESIUM 1.7 mg/dl (1.7-2.5); PHOSPHORUS 4.1 mg/dl (2.5-4.9)
[2019-04-26 07:29] LABS: ANION GAP 5 (5-13); CHLORIDE 103 mmol/L (97-110); POTASSIUM 3.6 mmol/L (3.5-5.1); SODIUM 139 mmol/L (135-144)
[2019-04-26 09:42] LABS: ANISOCYTOSIS 1+ (0-0); BAND NEUTROPHILS #M 7.9 10^3/ul (0.0-0.6); BAND NEUTROPHILS % (M) 32 % (0-4); HYPOCHROMASIA 1+ (0-0); LYMPHOCYTES #M 0.4 10^3/ul (0.8-2.9); LYMPHOCYTES % (M) 2 % (15-51); METAMYELOCYTES #M 0.2 10^3/ul (0.0-0.0); METAMYELOCYTES %M 1 % (0-0); MONOCYTE #M 0.7 10^3/ul (0.3-0.9); MONOCYTES % (M) 3 % (0-11); MYELOCYTES #M 0.2 10^3/ul (0.0-0.0); MYELOCYTES % (M) 1 % (0-0); PLATELET ESTIMATE NORMAL; POLYCHROMASIA 1+ (0-0); SEG NEUT #M 17.2 10^3/ul (1.6-7.5); SEGMENTED NEUTROPHILS (M) % 61 % (39-77); SMUDGE%M 18 % (0-0); TOXIC GRANULATION 1+ (0-0)
[2019-04-26] MEDS: SOD CHLORIDE 0.9% 100 ML (11:45)
[2019-04-26] MEDS: IOHEXOL 300MG/ML 150 ML BTL (11:45)
[2019-04-26] MEDS ORDERED: VANCOMYCIN IV PER PHARMACY XX (12:00)
[2019-04-26] MEDS ORDERED: PHENYLephrine (100 MCG/ML) 10ML SYG (13:00)
[2019-04-26] MEDS ORDERED: EPHEDrine 25 MG/5 ML SYG (13:00)
[2019-04-26] MEDS ORDERED: NEOSTIGMINE 3 MG/3 ML SYRINGE (13:33)
[2019-04-26] MEDS ORDERED: SUCCINYLCHOLINE CHLORIDE 100 MG/5 ML SYG IV (13:33)
[2019-04-26] MEDS ORDERED: GLYCOPYRROLATE 0.4 MG INJ (13:33)
[2019-04-26] MEDS ORDERED: LIDOCAINE 2% (SDV) 5 ML INJ (13:33)
[2019-04-26] MEDS ORDERED: MEPERIDINE 100 MG INJ (13:33)
[2019-04-26] MEDS ORDERED: PROPOFOL 20 ML (13:33)
[2019-04-26] MEDS ORDERED: ROCURONIUM 50 MG INJ ×2 (13:33→17:13)
[2019-04-26] MEDS: morphine 2 MG INJ IV ×2 (13:49→18:10)
[2019-04-26 16:09] LABS: AADO2 Arterial 570.2 mmHg (7.0-24.0); Arterial Base Excess 0.7 mmol/L (-3.0-3); Arterial Blood Gas Oxygen Sat 93.4 mmHG (95.0-98.0); Arterial COHb 0.6 % (0.0-3.0); Arterial Fraction of Oxyhgb 92.6 % (93.0-99.0); Arterial HCO3 27.2 mmol/L (22.0-26.0); Arterial MetHb 0.3 % (0.0-1.5); Arterial pCO2 53.9 mmhg (35-45); MODE VENT - AC; Site Femoral
[2019-04-26 16:32] LABS: ALANINE AMINOTRANSFERASE 31 IU/L (13-69); ALBUMIN 1.6 g/dl (3.3-4.9); ALBUMIN/GLOBULIN RATIO 0.64; ALKALINE PHOSPHATASE 120 IU/L (42-121); ANION GAP 8 (5-13); ASPARTATE AMINO TRANSFERASE 28 IU/L (15-46); BILIRUBIN,INDIRECT 0.4 mg/dl (0-1.1); BILIRUBIN,TOTAL 0.4 mg/dl (0.2-1.3); BLOOD UREA NITROGEN 22 mg/dl (7-20); CALCIUM 11.6 mg/dl (8.4-10.2); CARBON DIOXIDE 31 mmol/L (21-31); CHLORIDE 98 mmol/L (97-110); CREATININE 1.01 mg/dl (0.61-1.24); Estimated GFR > 60 mL/min (>60); GLUCOSE 253 mg/dl (70-220); POTASSIUM 4.4 mmol/L (3.5-5.1); SODIUM 137 mmol/L (135-144); TOTAL PROTEIN 4.1 g/dl (6.1-8.1)
[2019-04-26 16:36] LABS: ABNORMAL IP MESSAGE 1; HEMATOCRIT 26.8 % (42.0-52.0); HEMOGLOBIN 8.5 g/dl (14.0-18.0); MEAN CORPUSCULAR HEMOGLOBIN 28.4 pg (29.0-33.0); MEAN CORPUSCULAR HGB CONC 31.7 g/dl (32.0-37.0); MEAN CORPUSCULAR VOLUME 89.6 fl (82.0-101.0); NUCLEATED RED BLOOD CELLS% 0.6 /100WBC (0.0-0.0); PLATELET COUNT 266 10^3/UL (140-415); POSITIVE DIFF @See below; RED BLOOD COUNT 2.99 10^6/ul (4.70-6.10); RED CELL DISTRIBUTION WIDTH 15.9 % (11.5-14.5)
[2019-04-26 16:36] LABS: WHITE BLOOD COUNT 19.7 10^3/ul (4.8-10.8)
[2019-04-26 16:49] LABS: ADD MAN DIFF? YES
[2019-04-26] MEDS: BALSAM PERU/CASTOR OIL 60 GM TUBE TOP ×2 (17:00→22:47)
[2019-04-26] MEDS ORDERED: LACTATED RINGER'S 500 ML IV (17:01)
[2019-04-26] MEDS ORDERED: LACTATED RINGER'S 1,000 ML IV (17:01)
[2019-04-26] MEDS: D5W-0.45 NACL + KCL 20 MEQ 1,000 ML IV (17:08)
[2019-04-26] MEDS: VANCOMYCIN 1.5 GM/NS 250 ML 250 ML IVPB (17:09)
[2019-04-26 17:42] LABS: BAND NEUTROPHILS #M 4.7 10^3/ul (0.0-0.6); BAND NEUTROPHILS % (M) 24 % (0-4); GIANT THROMBO% (M) 1 % (0-0); LYMPHOCYTES #M 1.9 10^3/ul (0.8-2.9); LYMPHOCYTES % (M) 10 % (15-51); METAMYELOCYTES #M 0.1 10^3/ul (0.0-0.0); METAMYELOCYTES %M 1 % (0-0); MICROCYTOSIS 1+ (0-0); MONOCYTE #M 0.7 10^3/ul (0.3-0.9); MONOCYTES % (M) 4 % (0-11); POLYCHROMASIA 1+ (0-0); PROMYELOCYTES #M 0.1 10^3/ul (0-0); PROMYELOCYTES % (M) 1 % (0-0); SEG NEUT #M 12.7 10^3/ul (1.6-7.5); SEGMENTED NEUTROPHILS (M) % 60 % (39-77); SMUDGE%M 13 % (0-0)
[2019-04-26 17:59] LABS: AADO2 Arterial 617.5 mmHg (7.0-24.0); Arterial Base Excess 0.4 mmol/L (-3.0-3); Arterial Blood Gas Oxygen Sat 92.6 mmHG (95.0-98.0); Arterial COHb 0.6 % (0.0-3.0); Arterial Fraction of Oxyhgb 91.8 % (93.0-99.0); Arterial HCO3 22.5 mmol/L (22.0-26.0); Arterial MetHb 0.3 % (0.0-1.5); Arterial pCO2 27.5 mmhg (35-45); MODE VENT - AC; Site A-Line
[2019-04-26] MEDS: SOD CHLORIDE 0.9% 1,000 ML IV ×3 (18:10→18:51)
[2019-04-26] MEDS: FENTAnyl (DRIP) 1000 mcg/100mL 100 ML IV ×2 (18:37→19:52)
[2019-04-26] MEDS: LORAZEPAM 2 MG INJ IV (18:45)
[2019-04-26] MEDS: ALBUMIN HUMAN 25% 100 ML IV (18:49)
[2019-04-26] MEDS: MEROPENEM 1 GM/50ML(PMX) 50 ML IVPB ×2 (19:05→22:22)
[2019-04-26] MEDS: NORepinephrine 8MG/250 ML (PMX 250 ML IV (19:15)
[2019-04-26] MEDS: CITALOPRAM 20 MG TAB NGT (19:40)
[2019-04-26] MEDS: predniSONE 10 MG TAB PO (19:41)
[2019-04-26] MEDS: BENZTROPINE 1 MG TAB NGT (19:41)
[2019-04-26] MEDS: MESALAMINE (SR) 250 MG CAP PO ×3 (19:41→19:44)
[2019-04-26] MEDS: DIAZEPAM 5 MG TAB NGT (19:42)
[2019-04-26] MEDS: QUETIAPINE 100 MG TAB NGT (19:42)
[2019-04-26] MEDS: DIVALPROEX SPRINKLE 125 MG CAP PO (19:42)
[2019-04-26] MEDS: HEPARIN 5,000 UNIT/1 ML VIAL SC (20:51)
[2019-04-26] MEDS: ACETAMINOPHEN 1000MG/100ML IV 100 ML IVPB (23:41)
[2019-04-27] MEDS: PHENYLephrine 40 MG in DEXTROSE 5% 246 ML IV ×6 (00:28→20:56)
[2019-04-27] MEDS: SOD CHLORIDE 0.9% 500 ML IV ×2 (00:29→01:23)
[2019-04-27] MEDS: SOD CHLORIDE 0.9% 1,000 ML IV ×2 (04:50→17:19)
[2019-04-27] MEDS: VANCOMYCIN 1.25 GM/NS 250 ML 250 ML IVPB ×2 (04:52→17:19)
[2019-04-27 05:09] LABS: ABNORMAL IP MESSAGE 1; HEMATOCRIT 26.3 % (42.0-52.0); HEMOGLOBIN 8.7 g/dl (14.0-18.0); MEAN CORPUSCULAR HEMOGLOBIN 28.7 pg (29.0-33.0); MEAN CORPUSCULAR HGB CONC 33.1 g/dl (32.0-37.0); MEAN CORPUSCULAR VOLUME 86.8 fl (82.0-101.0); MEAN PLATELET VOLUME 11.2 fl (7.4-10.4); PLATELET COUNT 300 10^3/UL (140-415); POSITIVE DIFF @See below; RED BLOOD COUNT 3.03 10^6/ul (4.70-6.10); RED CELL DISTRIBUTION WIDTH 16.3 % (11.5-14.5)
[2019-04-27 05:23] LABS: ADD MAN DIFF? YES
[2019-04-27 05:35] LABS: MAGNESIUM 1.5 mg/dl (1.7-2.5)
[2019-04-27 05:42] LABS: ALANINE AMINOTRANSFERASE 31 IU/L (13-69); ALBUMIN/GLOBULIN RATIO 0.74; ALKALINE PHOSPHATASE 74 IU/L (42-121); ANION GAP 5 (5-13); ASPARTATE AMINO TRANSFERASE 35 IU/L (15-46); BILIRUBIN,INDIRECT 0.7 mg/dl (0-1.1); BILIRUBIN,TOTAL 1.7 mg/dl (0.2-1.3); BLOOD UREA NITROGEN 28 mg/dl (7-20); CALCIUM 7.4 mg/dl (8.4-10.2); CARBON DIOXIDE 28 mmol/L (21-31); CHLORIDE 107 mmol/L (97-110); CREATININE 0.94 mg/dl (0.61-1.24); Estimated GFR > 60 mL/min (>60); GLUCOSE 128 mg/dl (70-220); POTASSIUM 3.6 mmol/L (3.5-5.1); SODIUM 140 mmol/L (135-144); TOTAL PROTEIN 4.7 g/dl (6.1-8.1)
[2019-04-27 06:05] LABS: AADO2 Arterial 204.2 mmHg (7.0-24.0); Arterial Base Excess 1.2 mmol/L (-3.0-3); Arterial Blood Gas Oxygen Sat 97.6 mmHG (95.0-98.0); Arterial COHb 0.3 % (0.0-3.0); Arterial HCO3 23.7 mmol/L (22.0-26.0); Arterial MetHb 0.3 % (0.0-1.5); MODE VENT - AC; Site A-Line
[2019-04-27] MEDS: MEROPENEM 1 GM/50ML(PMX) 50 ML IVPB ×3 (06:09→22:26)
[2019-04-27] MEDS: PANTOPRAZOLE 40 MG INJ IV (06:09)
[2019-04-27 07:02] LABS: BAND NEUTROPHILS #M 10.3 10^3/ul (0.0-0.6); BAND NEUTROPHILS % (M) 74 % (0-4); BURR CELLS 1+ (0-0); LYMPHOCYTES #M 0.1 10^3/ul (0.8-2.9); LYMPHOCYTES % (M) 1 % (15-51); METAMYELOCYTES #M 0.2 10^3/ul (0.0-0.0); METAMYELOCYTES %M 2 % (0-0); MONOCYTE #M 0.2 10^3/ul (0.3-0.9); MONOCYTES % (M) 2 % (0-11); MYELOCYTES #M 0.1 10^3/ul (0.0-0.0); MYELOCYTES % (M) 1 % (0-0); PLATELET ESTIMATE NORMAL; POIKILOCYTOSIS 1+ (0-0); REACTIVE LYMPHOCYTES #M 0.1 10^3/ul (0.0-0.0); REACTIVE LYMPHOCYTES% (M) 1 % (0-0); SEG NEUT #M 4.1 10^3/ul (1.6-7.5); SEGMENTED NEUTROPHILS (M) % 19 % (39-77); SMUDGE%M 7 % (0-0)
[2019-04-27] MEDS: BALSAM PERU/CASTOR OIL 60 GM TUBE TOP ×2 (07:55→21:10)
[2019-04-27] MEDS: FENTAnyl (DRIP) 1000 mcg/100mL 100 ML IV ×2 (08:04→19:16)
[2019-04-27] MEDS: MIDAZOLAM (DRIP) 50 mg/50 mL 50 ML IV (10:05)
[2019-04-27 10:12] LABS: ALANINE AMINOTRANSFERASE 37 IU/L (13-69); ALBUMIN 2.1 g/dl (3.3-4.9); ALBUMIN/GLOBULIN RATIO 0.77; ALKALINE PHOSPHATASE 71 IU/L (42-121); ANION GAP 4 (5-13); ASPARTATE AMINO TRANSFERASE 35 IU/L (15-46); BILIRUBIN,INDIRECT 0.7 mg/dl (0-1.1); BLOOD UREA NITROGEN 27 mg/dl (7-20); CALCIUM 7.5 mg/dl (8.4-10.2); CARBON DIOXIDE 29 mmol/L (21-31); CHLORIDE 108 mmol/L (97-110); CREATININE 0.84 mg/dl (0.61-1.24); Estimated GFR > 60 mL/min (>60); GLUCOSE 124 mg/dl (70-220); MAGNESIUM 1.6 mg/dl (1.7-2.5); PHOSPHORUS 3.4 mg/dl (2.5-4.9); POTASSIUM 3.6 mmol/L (3.5-5.1); SODIUM 141 mmol/L (135-144); TOTAL PROTEIN 4.8 g/dl (6.1-8.1); TRIGLYCERIDES 470 mg/dl (0-149)
[2019-04-27 10:19] LABS: PREALBUMIN 6.7 mg/dl (17.6-36.0)
[2019-04-27] MEDS: HEPARIN 5,000 UNIT/1 ML VIAL SC (10:19)
[2019-04-27] MEDS: ACCU-CHEK XX ×3 (11:50→21:08)
[2019-04-27] MEDS: ACETAMINOPHEN 1000MG/100ML IV 100 ML IVPB ×2 (12:04→13:30)
[2019-04-27] MEDS ORDERED: HEPARIN 1000 UNITS/ML 10 ML INJ IV ×3 (13:00)
[2019-04-27 14:45] LABS: ABNORMAL IP MESSAGE 1; ADD MAN DIFF? YES; HEMATOCRIT 24.2 % (42.0-52.0); HEMOGLOBIN 7.7 g/dl (14.0-18.0); MEAN CORPUSCULAR HEMOGLOBIN 28.7 pg (29.0-33.0); MEAN CORPUSCULAR HGB CONC 31.8 g/dl (32.0-37.0); MEAN CORPUSCULAR VOLUME 90.3 fl (82.0-101.0); MEAN PLATELET VOLUME 10.8 fl (7.4-10.4); PLATELET COUNT 269 10^3/UL (140-415); POSITIVE DIFF @See below; RED BLOOD COUNT 2.68 10^6/ul (4.70-6.10); RED CELL DISTRIBUTION WIDTH 16.7 % (11.5-14.5)
[2019-04-27] MEDS ORDERED: NORepinephrine 32 MG in DEXTROSE 5% 218 ML IV (15:00)
[2019-04-27 15:05] LABS: LACTIC ACID 1.1 mmol/L (0.5-2.0)
[2019-04-27 15:37] LABS: INR 2.72; PROTIME 28.9 Sec (11.9-14.9); PT RATIO 2.3
[2019-04-27 15:38] LABS: ANISOCYTOSIS 2+ (0-0); BAND NEUTROPHILS #M 4.9 10^3/ul (0.0-0.6); BAND NEUTROPHILS % (M) 35 % (0-4); BASOPHIL #M 0.1 10^3/ul (0.0-0.0); BASOPHILS % (M) 1 % (0-2); GIANT THROMBO% (M) 1 % (0-0); LYMPHOCYTES #M 0.4 10^3/ul (0.8-2.9); LYMPHOCYTES % (M) 3 % (15-51); METAMYELOCYTES #M 0.2 10^3/ul (0.0-0.0); METAMYELOCYTES %M 2 % (0-0); MICROCYTOSIS 1+ (0-0); PLATELET ESTIMATE NORMAL; POIKILOCYTOSIS 1+ (0-0); POLYCHROMASIA 1+ (0-0); SEG NEUT #M 8.9 10^3/ul (1.6-7.5); SEGMENTED NEUTROPHILS (M) % 59 % (39-77); SMUDGE%M 3 % (0-0)
[2019-04-27] MEDS: HEPARIN 1000 UNITS/ML 10 ML INJ IV (16:18)
[2019-04-27] MEDS: HEPARIN 25000 UNITS/250 ML 250 ML IV (16:21)
[2019-04-27 16:51] LABS: PROCALCITONIN 16.65 ng/mL (0.00-0.10)
[2019-04-27] MEDS: VASOPRESSIN 60 UNIT in DEXTROSE 5% 57 ML IV (17:28)
[2019-04-27] MEDS: TPN 1,000 ML IV (17:36)
[2019-04-27] MEDS: MAGNESIUM SULFATE 2 GM/50 ML 50 ML IVPB (22:26)
[2019-04-27] MEDS ORDERED: GLUCAGON 1 MG INJ IM (22:30)
[2019-04-27] MEDS ORDERED: GLUCOSE GEL 15 GRAM TUBE BUCCAL (22:30)
[2019-04-27] MEDS ORDERED: DEXTROSE 50% 50 ML SYRINGE IV ×2 (22:30)
[2019-04-27] MEDS ORDERED: GLUCOSE GEL 15 GRAM TUBE PO ×2 (22:30)
[2019-04-27 22:42] LABS: CREATINE KINASE 271 IU/L (23-200)
[2019-04-27 22:51] LABS: CK INDEX 0.4; CK-MB 1.18 ng/ml (0.0-2.4)
[2019-04-27 22:56] LABS: PARTIAL THROMBOPLASTIN TIME 179.1 Sec (23.0-35.0)
[2019-04-27] MEDS: PHENYLephrine 80 MG in DEXTROSE 5% 242 ML IV (22:59)
[2019-04-28] MEDS: INSULIN ASPART [NOVOLOG] 3 ML PEN SC ×6 (01:14→20:22)
[2019-04-28] MEDS: PHENYLephrine 80 MG in DEXTROSE 5% 242 ML IV ×3 (03:15→14:35)
[2019-04-28 03:59] LABS: WHITE BLOOD COUNT 12.9 10^3/ul (4.8-10.8)
[2019-04-28 03:59] LABS: ABNORMAL IP MESSAGE 1; HEMATOCRIT 19.7 % (42.0-52.0); MEAN CORPUSCULAR VOLUME 90.8 fl (82.0-101.0); MEAN PLATELET VOLUME 10.8 fl (7.4-10.4); PLATELET COUNT 298 10^3/UL (140-415); POSITIVE DIFF @See below; RED BLOOD COUNT 2.17 10^6/ul (4.70-6.10); RED CELL DISTRIBUTION WIDTH 16.7 % (11.5-14.5)
[2019-04-28 04:01] LABS: ADD MAN DIFF? YES
[2019-04-28 04:02] LABS: PARTIAL THROMBOPLASTIN TIME 88.1 Sec (23.0-35.0)
[2019-04-28 04:04] LABS: HEMOGLOBIN 6.3 g/dl (14.0-18.0)
[2019-04-28 04:06] LABS: ALANINE AMINOTRANSFERASE 54 IU/L (13-69); ALBUMIN 1.9 g/dl (3.3-4.9); ALKALINE PHOSPHATASE 58 IU/L (42-121); ANION GAP 1 (5-13); ASPARTATE AMINO TRANSFERASE 44 IU/L (15-46); BILIRUBIN,INDIRECT 0.7 mg/dl (0-1.1); BILIRUBIN,TOTAL 1.4 mg/dl (0.2-1.3); BLOOD UREA NITROGEN 23 mg/dl (7-20); CALCIUM 7.3 mg/dl (8.4-10.2); CARBON DIOXIDE 30 mmol/L (21-31); CHLORIDE 109 mmol/L (97-110); CREATINE KINASE 275 IU/L (23-200); CREATININE 0.64 mg/dl (0.61-1.24); Estimated GFR > 60 mL/min (>60); GLUCOSE 185 mg/dl (70-220); POTASSIUM 3.5 mmol/L (3.5-5.1); SODIUM 140 mmol/L (135-144); TOTAL PROTEIN 4.6 g/dl (6.1-8.1)
[2019-04-28 04:19] LABS: CK INDEX 0.3; CK-MB 0.69 ng/ml (0.0-2.4); TROPONIN-I 0.074 ng/ml (0.000-0.120)
[2019-04-28] MEDS: MIDAZOLAM (DRIP) 50 mg/50 mL 50 ML IV ×2 (04:28→22:30)
[2019-04-28 04:32] LABS: ACANTHOCYTES 1+ (0-0); BAND NEUTROPHILS #M 2.8 10^3/ul (0.0-0.6); BAND NEUTROPHILS % (M) 22 % (0-4); BURR CELLS 1+ (0-0); LYMPHOCYTES #M 0.3 10^3/ul (0.8-2.9); LYMPHOCYTES % (M) 3 % (15-51); MONOCYTE #M 0.1 10^3/ul (0.3-0.9); MONOCYTES % (M) 1 % (0-11); PLATELET ESTIMATE NORMAL; POLYCHROMASIA 1+ (0-0); SEG NEUT #M 9.9 10^3/ul (1.6-7.5); SEGMENTED NEUTROPHILS (M) % 74 % (39-77); SMUDGE%M 77 % (0-0); TARGET CELLS 1+ (0-0)
[2019-04-28 04:34] LABS: VANCOMYCIN,TROUGH 7.2 ug/ml (10.0-20.0)
[2019-04-28] MEDS: VASOPRESSIN 60 UNIT in DEXTROSE 5% 57 ML IV ×2 (04:34→16:00)
[2019-04-28] MEDS: VANCOMYCIN 1.25 GM/NS 250 ML 250 ML IVPB ×3 (04:39→20:22)
[2019-04-28 04:57] LABS: MAGNESIUM 2.2 mg/dl (1.7-2.5)
[2019-04-28 04:57] LABS: PHOSPHORUS 1.8 mg/dl (2.5-4.9)
[2019-04-28] MEDS: TPN 1,000 ML IV ×2 (05:37→20:21)
[2019-04-28] MEDS: MEROPENEM 1 GM/50ML(PMX) 50 ML IVPB ×3 (05:37→22:27)
[2019-04-28] MEDS: PANTOPRAZOLE 40 MG INJ IV (05:37)
[2019-04-28] MEDS: FENTAnyl (DRIP) 1000 mcg/100mL 100 ML IV ×3 (05:54→19:13)
[2019-04-28 07:16] LABS: AADO2 Arterial 73.3 mmHg (7.0-24.0); Arterial Base Excess 1.7 mmol/L (-3.0-3); Arterial Blood Gas Oxygen Sat 96.8 mmHG (95.0-98.0); Arterial COHb 0.7 % (0.0-3.0); Arterial Fraction of Oxyhgb 95.8 % (93.0-99.0); Arterial HCO3 26.1 mmol/L (22.0-26.0); Arterial MetHb 0.3 % (0.0-1.5); Arterial pCO2 39.7 mmhg (35-45); MODE VENT - AC; Site A-Line
[2019-04-28] MEDS: BALSAM PERU/CASTOR OIL 60 GM TUBE TOP ×2 (08:42→20:22)
[2019-04-28] MEDS ORDERED: SODIUM PHOSPHATE 20 MEQ in SOD CHLORIDE 0.9% 250 ML IVPB (10:00)
[2019-04-28] MEDS: NORepinephrine 32 MG in DEXTROSE 5% 218 ML IV (11:29)
[2019-04-28] MEDS ORDERED: NORepinephrine 8MG/250 ML (PMX 250 ML (11:37)
[2019-04-28] MEDS: NORepinephrine 8MG/250 ML (PMX 250 ML IV ×2 (12:14→20:24)
[2019-04-28] MEDS: POTASSIUM PHOSPHATE 30 MM in SOD CHLORIDE 0.9% 250 ML IVPB (14:30)
[2019-04-28 17:43] LABS: HEMATOCRIT 25.2 % (42.0-52.0); HEMOGLOBIN 8.2 g/dl (14.0-18.0)
[2019-04-28] MEDS: SOD CHLORIDE 0.9% 1,000 ML IV (18:28)
[2019-04-29 01:10] LABS: HEMOGLOBIN 7.8 g/dl (14.0-18.0)
[2019-04-29] MEDS: INSULIN ASPART [NOVOLOG] 3 ML PEN SC ×6 (01:40→20:39)
[2019-04-29] MEDS: VASOPRESSIN 60 UNIT in DEXTROSE 5% 57 ML IV ×2 (01:55→16:00)
[2019-04-29] MEDS: VANCOMYCIN 1.25 GM/NS 250 ML 250 ML IVPB (04:41)
[2019-04-29] MEDS: NORepinephrine 8MG/250 ML (PMX 250 ML IV ×2 (04:46→18:16)
[2019-04-29] MEDS: MEROPENEM 1 GM/50ML(PMX) 50 ML IVPB (05:28)
[2019-04-29] MEDS: PANTOPRAZOLE 40 MG INJ IV (05:28)
[2019-04-29] MEDS: FENTAnyl (DRIP) 1000 mcg/100mL 100 ML IV ×2 (05:40→19:47)
[2019-04-29 06:27] LABS: ADD MAN DIFF? NO
[2019-04-29 06:30] LABS: WHITE BLOOD COUNT 12.5 10^3/ul (4.8-10.8)
[2019-04-29 06:30] LABS: ABNORMAL IP MESSAGE 1; BASOPHILS % 0.2 % (0.0-2.0); EOSINOPHILS % 0.3 % (0.0-7.0); HEMATOCRIT 22.7 % (42.0-52.0); HEMOGLOBIN 7.4 g/dl (14.0-18.0); LYMPHOCYTES # 0.4 10^3/ul (0.8-2.9); LYMPHOCYTES % 3.5 % (15.0-51.0); MEAN CORPUSCULAR HEMOGLOBIN 29.7 pg (29.0-33.0); MEAN CORPUSCULAR HGB CONC 32.6 g/dl (32.0-37.0); MEAN CORPUSCULAR VOLUME 91.2 fl (82.0-101.0); MEAN PLATELET VOLUME 10.1 fl (7.4-10.4); MONOCYTE # 0.6 10^3/ul (0.3-0.9); MONOCYTES % 4.7 % (0.0-11.0); NEUTROPHIL # 11.3 10^3/ul (1.6-7.5); NEUTROPHILS % 90.3 % (39.0-77.0); PLATELET COUNT 198 10^3/UL (140-415); POSITIVE DIFF @See below; RED BLOOD COUNT 2.49 10^6/ul (4.70-6.10)
[2019-04-29 06:53] LABS: ANION GAP 1 (5-13); BLOOD UREA NITROGEN 18 mg/dl (7-20); CALCIUM 7.4 mg/dl (8.4-10.2); CARBON DIOXIDE 29 mmol/L (21-31); CHLORIDE 110 mmol/L (97-110); CREATININE 0.48 mg/dl (0.61-1.24); Estimated GFR > 60 mL/min (>60); GLUCOSE 148 mg/dl (70-220); MAGNESIUM 1.6 mg/dl (1.7-2.5); PHOSPHORUS 1.7 mg/dl (2.5-4.9); POTASSIUM 3.7 mmol/L (3.5-5.1); SODIUM 140 mmol/L (135-144)
[2019-04-29] MEDS: TPN 1,000 ML IV ×2 (08:19→20:29)
[2019-04-29] MEDS: BALSAM PERU/CASTOR OIL 60 GM TUBE TOP ×2 (08:26→21:39)
[2019-04-29 10:05] LABS: IMMEDIATE SPIN CROSSMATCH 1 5
[2019-04-29] MEDS: MAGNESIUM SULFATE 2 GM/50 ML 50 ML IVPB (10:51)
[2019-04-29] MEDS ORDERED: DEXMEDETOMIDINE IN DEXTROSE 5% 50 ML IV (12:00)
[2019-04-29] MEDS: PIPER-TAZO 3.375 GM IV (PMX) 100 ML IVPB ×3 (13:10→23:45)
[2019-04-29] MEDS: DEXMEDETOMIDINE IN DEXTROSE 5% 50 ML IV ×3 (13:46→20:42)
[2019-04-29] MEDS: POTASSIUM PHOSPHATE 30 MM in SOD CHLORIDE 0.9% 250 ML IVPB (15:06)
[2019-04-29] MEDS: SOD CHLORIDE 0.9% 1,000 ML IV (16:15)
[2019-04-29 17:03] LABS: IMMEDIATE SPIN CROSSMATCH 1
[2019-04-29] MEDS: morphine 2 MG INJ IV (20:53)
[2019-04-30] MEDS: morphine 2 MG INJ IV ×4 (00:50→23:39)
[2019-04-30] MEDS: INSULIN ASPART [NOVOLOG] 3 ML PEN SC ×6 (00:51→20:38)
[2019-04-30] MEDS: DEXMEDETOMIDINE IN DEXTROSE 5% 50 ML IV ×4 (01:06→10:59)
[2019-04-30 01:18] LABS: HEMATOCRIT 28.1 % (42.0-52.0); HEMOGLOBIN 9.1 g/dl (14.0-18.0)
[2019-04-30] MEDS: LORAZEPAM 2 MG INJ IV (02:27)
[2019-04-30] MEDS: VASOPRESSIN 60 UNIT in DEXTROSE 5% 57 ML IV ×2 (04:00→16:00)
[2019-04-30] MEDS: FENTAnyl (DRIP) 1000 mcg/100mL 100 ML IV (05:12)
[2019-04-30 05:13] LABS: ADD MAN DIFF? NO
[2019-04-30 05:27] LABS: WHITE BLOOD COUNT 10.1 10^3/ul (4.8-10.8)
[2019-04-30 05:28] LABS: ABNORMAL IP MESSAGE 1; BASOPHILS % 0.2 % (0.0-2.0); EOSINOPHILS % 0.4 % (0.0-7.0); HEMATOCRIT 28.1 % (42.0-52.0); HEMOGLOBIN 9.1 g/dl (14.0-18.0); LYMPHOCYTES # 0.3 10^3/ul (0.8-2.9); LYMPHOCYTES % 3.1 % (15.0-51.0); MEAN CORPUSCULAR HEMOGLOBIN 29.2 pg (29.0-33.0); MEAN CORPUSCULAR HGB CONC 32.4 g/dl (32.0-37.0); MEAN CORPUSCULAR VOLUME 90.1 fl (82.0-101.0); MEAN PLATELET VOLUME 10.5 fl (7.4-10.4); MONOCYTE # 0.5 10^3/ul (0.3-0.9); MONOCYTES % 5.2 % (0.0-11.0); NEUTROPHIL # 9.1 10^3/ul (1.6-7.5); NEUTROPHILS % 90.2 % (39.0-77.0); PLATELET COUNT 173 10^3/UL (140-415); POSITIVE DIFF @See below; RED BLOOD COUNT 3.12 10^6/ul (4.70-6.10); RED CELL DISTRIBUTION WIDTH 15.9 % (11.5-14.5)
[2019-04-30] MEDS: PANTOPRAZOLE 40 MG INJ IV (05:30)
[2019-04-30] MEDS: PIPER-TAZO 3.375 GM IV (PMX) 100 ML IVPB ×3 (05:30→19:09)
[2019-04-30 05:47] LABS: LACTIC ACID 1.1 mmol/L (0.5-2.0)
[2019-04-30 05:48] LABS: PHOSPHORUS 2.4 mg/dl (2.5-4.9)
[2019-04-30 05:48] LABS: MAGNESIUM 1.8 mg/dl (1.7-2.5)
[2019-04-30 05:58] LABS: ANION GAP 2 (5-13); BLOOD UREA NITROGEN 16 mg/dl (7-20); CALCIUM 7.6 mg/dl (8.4-10.2); CARBON DIOXIDE 28 mmol/L (21-31); CHLORIDE 109 mmol/L (97-110); CREATININE 0.41 mg/dl (0.61-1.24); Estimated GFR > 60 mL/min (>60); GLUCOSE 121 mg/dl (70-220); SODIUM 139 mmol/L (135-144)
[2019-04-30] MEDS: BALSAM PERU/CASTOR OIL 60 GM TUBE TOP ×2 (09:25→20:37)
[2019-04-30] MEDS: SODIUM PHOSPHATE 20 MEQ in SOD CHLORIDE 0.9% 250 ML IVPB (09:25)
[2019-04-30] MEDS: TPN 1,000 ML IV ×2 (10:03→23:39)
[2019-04-30 11:48] LABS: AADO2 Arterial 114.4 mmHg (7.0-24.0); Arterial Base Excess -0.4 mmol/L (-3.0-3); Arterial Blood Gas Oxygen Sat 97.8 mmHG (95.0-98.0); Arterial COHb 0.3 % (0.0-3.0); Arterial Fraction of Oxyhgb 97.2 % (93.0-99.0); Arterial HCO3 23.5 mmol/L (22.0-26.0); Arterial MetHb 0.3 % (0.0-1.5); Arterial pCO2 35.5 mmhg (35-45); Blood Gas PS 10; MODE VENT - CPAP; Site A-Line
[2019-04-30 12:15] LABS: HEMATOCRIT 28.3 % (42.0-52.0); HEMOGLOBIN 9.3 g/dl (14.0-18.0)
[2019-04-30] MEDS: FUROSEMIDE 20 MG INJ IV (12:23)
[2019-04-30] MEDS: SOD CHLORIDE 0.9% 1,000 ML IV (18:57)
[2019-04-30 19:57] LABS: HEMATOCRIT 27.8 % (42.0-52.0)
[2019-05-01] MEDS: PIPER-TAZO 3.375 GM IV (PMX) 100 ML IVPB ×5 (00:47→23:41)
[2019-05-01] MEDS: INSULIN ASPART [NOVOLOG] 3 ML PEN SC ×6 (00:48→22:27)
[2019-05-01] MEDS: VASOPRESSIN 60 UNIT in DEXTROSE 5% 57 ML IV (03:31)
[2019-05-01 04:53] LABS: ADD MAN DIFF? NO
[2019-05-01 05:00] LABS: ABNORMAL IP MESSAGE 1; BASOPHILS % 0.2 % (0.0-2.0); EOSINOPHILS % 0.1 % (0.0-7.0); HEMATOCRIT 27.8 % (42.0-52.0); LYMPHOCYTES # 0.3 10^3/ul (0.8-2.9); LYMPHOCYTES % 2.5 % (15.0-51.0); MEAN CORPUSCULAR HEMOGLOBIN 29.1 pg (29.0-33.0); MEAN CORPUSCULAR HGB CONC 32.4 g/dl (32.0-37.0); MEAN PLATELET VOLUME 10.6 fl (7.4-10.4); MONOCYTE # 0.6 10^3/ul (0.3-0.9); MONOCYTES % 5.3 % (0.0-11.0); NEUTROPHIL # 9.5 10^3/ul (1.6-7.5); NEUTROPHILS % 90.7 % (39.0-77.0); PLATELET COUNT 202 10^3/UL (140-415); POSITIVE DIFF @See below; RED BLOOD COUNT 3.09 10^6/ul (4.70-6.10); RED CELL DISTRIBUTION WIDTH 16.1 % (11.5-14.5)
[2019-05-01 05:00] LABS: WHITE BLOOD COUNT 10.5 10^3/ul (4.8-10.8)
[2019-05-01 05:19] LABS: PHOSPHORUS 2.8 mg/dl (2.5-4.9)
[2019-05-01 05:19] LABS: MAGNESIUM 1.6 mg/dl (1.7-2.5)
[2019-05-01 05:20] LABS: ANION GAP 2 (5-13); BLOOD UREA NITROGEN 16 mg/dl (7-20); CALCIUM 7.9 mg/dl (8.4-10.2); CARBON DIOXIDE 30 mmol/L (21-31); CHLORIDE 106 mmol/L (97-110); CREATININE 0.43 mg/dl (0.61-1.24); Estimated GFR > 60 mL/min (>60); GLUCOSE 135 mg/dl (70-220); POTASSIUM 3.3 mmol/L (3.5-5.1); SODIUM 138 mmol/L (135-144)
[2019-05-01 05:21] LABS: ALANINE AMINOTRANSFERASE 93 IU/L (13-69); ALKALINE PHOSPHATASE 101 IU/L (42-121); ASPARTATE AMINO TRANSFERASE 96 IU/L (15-46); BILIRUBIN,TOTAL 3.2 mg/dl (0.2-1.3); TOTAL PROTEIN 5.1 g/dl (6.1-8.1)
[2019-05-01] MEDS: PANTOPRAZOLE 40 MG INJ IV (05:33)
[2019-05-01] MEDS: POTASSIUM CHLORIDE 50 ML IVPB (06:05)
[2019-05-01] MEDS: MAGNESIUM SULFATE 2 GM/50 ML 50 ML IVPB (06:05)
[2019-05-01] MEDS: BALSAM PERU/CASTOR OIL 60 GM TUBE TOP (08:39)
[2019-05-01] MEDS: morphine 2 MG INJ IV ×2 (09:34→15:41)
[2019-05-01] MEDS: TPN 1,000 ML IV (12:01)
[2019-05-01] MEDS: SOD CHLORIDE 0.9% 1,000 ML IV (15:37)
[2019-05-01] MEDS: QUETIAPINE 100 MG TAB NGT (22:17)
[2019-05-01] MEDS: DIAZEPAM 5 MG TAB NGT (22:17)
[2019-05-01] MEDS: BENZTROPINE 1 MG TAB NGT (22:17)
[2019-05-01] MEDS: DIVALPROEX SPRINKLE 125 MG CAP PO (22:18)
[2019-05-02] MEDS: INSULIN ASPART [NOVOLOG] 3 ML PEN SC ×6 (01:00→20:23)
[2019-05-02] MEDS: BALSAM PERU/CASTOR OIL 60 GM TUBE TOP ×3 (01:20→20:32)
[2019-05-02] MEDS: TPN 1,000 ML IV ×2 (01:52→17:07)
[2019-05-02] MEDS: SOD CHLORIDE 0.9% 1,000 ML IV ×2 (04:22→17:00)
[2019-05-02] MEDS: PIPER-TAZO 3.375 GM IV (PMX) 100 ML IVPB ×4 (05:50→23:27)
[2019-05-02] MEDS: PANTOPRAZOLE 40 MG INJ IV (05:50)
[2019-05-02 06:15] LABS: WHITE BLOOD COUNT 7.2 10^3/ul (4.8-10.8)
[2019-05-02 06:15] LABS: ABNORMAL IP MESSAGE 1; HEMOGLOBIN 9.5 g/dl (14.0-18.0); MEAN CORPUSCULAR HEMOGLOBIN 29.1 pg (29.0-33.0); MEAN CORPUSCULAR HGB CONC 32.8 g/dl (32.0-37.0); MEAN CORPUSCULAR VOLUME 88.7 fl (82.0-101.0); MEAN PLATELET VOLUME 10.3 fl (7.4-10.4); PLATELET COUNT 216 10^3/UL (140-415); POSITIVE DIFF @See below; RED BLOOD COUNT 3.27 10^6/ul (4.70-6.10); RED CELL DISTRIBUTION WIDTH 16.2 % (11.5-14.5)
[2019-05-02 06:18] LABS: ADD MAN DIFF? YES
[2019-05-02 06:31] LABS: PHOSPHORUS 2.8 mg/dl (2.5-4.9)
[2019-05-02 06:45] LABS: ALANINE AMINOTRANSFERASE 92 IU/L (13-69); ALBUMIN/GLOBULIN RATIO 0.57; ALKALINE PHOSPHATASE 108 IU/L (42-121); ANION GAP 1 (5-13); ASPARTATE AMINO TRANSFERASE 44 IU/L (15-46); BILIRUBIN,INDIRECT 1.1 mg/dl (0-1.1); BILIRUBIN,TOTAL 2.4 mg/dl (0.2-1.3); BLOOD UREA NITROGEN 11 mg/dl (7-20); CALCIUM 7.5 mg/dl (8.4-10.2); CARBON DIOXIDE 28 mmol/L (21-31); CHLORIDE 105 mmol/L (97-110); CREATININE 0.37 mg/dl (0.61-1.24); Estimated GFR > 60 mL/min (>60); GLUCOSE 133 mg/dl (70-220); MAGNESIUM 1.6 mg/dl (1.7-2.5); POTASSIUM 3.4 mmol/L (3.5-5.1); SODIUM 134 mmol/L (135-144); TOTAL PROTEIN 5.5 g/dl (6.1-8.1)
[2019-05-02 08:17] LABS: ANISOCYTOSIS 1+ (0-0); BAND NEUTROPHILS #M 2.7 10^3/ul (0.0-0.6); BAND NEUTROPHILS % (M) 38 % (0-4); LYMPHOCYTES #M 0.2 10^3/ul (0.8-2.9); LYMPHOCYTES % (M) 3 % (15-51); MYELOCYTES % (M) 1 % (0-0); PLATELET ESTIMATE NORMAL; POLYCHROMASIA 1+ (0-0); REACTIVE LYMPHOCYTES% (M) 1 % (0-0); SEG NEUT #M 4.3 10^3/ul (1.6-7.5); SEGMENTED NEUTROPHILS (M) % 57 % (39-77); SMUDGE%M 2 % (0-0)
[2019-05-02] MEDS: DIAZEPAM 5 MG TAB NGT ×2 (09:00→20:32)
[2019-05-02] MEDS ORDERED: QUETIAPINE 25 MG TAB PO (10:30)
[2019-05-02] MEDS: BENZTROPINE 1 MG TAB PO ×2 (10:30→20:32)
[2019-05-02] MEDS: QUETIAPINE 100 MG TAB PO ×2 (10:30→20:32)
[2019-05-02] MEDS: DIVALPROEX SPRINKLE 125 MG CAP PO ×2 (13:38→20:28)
[2019-05-02] MEDS: POTASSIUM CHLORIDE 20 MEQ POWDER FOR ORAL SOLN PO (13:42)
[2019-05-02] MEDS: MAGNESIUM SULFATE 2 GM/50 ML 50 ML IVPB (18:19)
[2019-05-03] MEDS: INSULIN ASPART [NOVOLOG] 3 ML PEN SC ×6 (01:00→20:30)
[2019-05-03] MEDS: PIPER-TAZO 3.375 GM IV (PMX) 100 ML IVPB ×3 (05:53→17:33)
[2019-05-03] MEDS: TPN 1,000 ML IV ×3 (05:53→19:29)
[2019-05-03] MEDS: PANTOPRAZOLE 40 MG INJ IV (05:53)
[2019-05-03 07:14] LABS: ADD MAN DIFF? NO
[2019-05-03 07:22] LABS: ABNORMAL IP MESSAGE 1; BASOPHILS % 0.3 % (0.0-2.0); EOSINOPHILS # 0.1 10^3/ul (0.0-0.5); EOSINOPHILS % 0.8 % (0.0-7.0); HEMATOCRIT 32.4 % (42.0-52.0); HEMOGLOBIN 10.5 g/dl (14.0-18.0); LYMPHOCYTES # 0.3 10^3/ul (0.8-2.9); LYMPHOCYTES % 4.4 % (15.0-51.0); MEAN CORPUSCULAR HEMOGLOBIN 28.9 pg (29.0-33.0); MEAN CORPUSCULAR HGB CONC 32.4 g/dl (32.0-37.0); MEAN CORPUSCULAR VOLUME 89.3 fl (82.0-101.0); MEAN PLATELET VOLUME 10.2 fl (7.4-10.4); MONOCYTE # 0.5 10^3/ul (0.3-0.9); MONOCYTES % 6.7 % (0.0-11.0); NEUTROPHIL # 6.4 10^3/ul (1.6-7.5); NEUTROPHILS % 87.1 % (39.0-77.0); PLATELET COUNT 231 10^3/UL (140-415); POSITIVE DIFF @See below; RED BLOOD COUNT 3.63 10^6/ul (4.70-6.10)
[2019-05-03 07:22] LABS: WHITE BLOOD COUNT 7.3 10^3/ul (4.8-10.8)
[2019-05-03 07:46] LABS: ALANINE AMINOTRANSFERASE 84 IU/L (13-69); ALBUMIN 2.4 g/dl (3.3-4.9); ALBUMIN/GLOBULIN RATIO 0.68; ALKALINE PHOSPHATASE 126 IU/L (42-121); ANION GAP 6 (5-13); ASPARTATE AMINO TRANSFERASE 36 IU/L (15-46); BILIRUBIN,INDIRECT 1.1 mg/dl (0-1.1); BLOOD UREA NITROGEN 10 mg/dl (7-20); CARBON DIOXIDE 24 mmol/L (21-31); CHLORIDE 109 mmol/L (97-110); CREATININE 0.45 mg/dl (0.61-1.24); Estimated GFR > 60 mL/min (>60); GLUCOSE 123 mg/dl (70-220); MAGNESIUM 1.9 mg/dl (1.7-2.5); POTASSIUM 3.8 mmol/L (3.5-5.1); SODIUM 139 mmol/L (135-144); TOTAL PROTEIN 5.9 g/dl (6.1-8.1)
[2019-05-03] MEDS ORDERED: BISACODYL 10 MG SUPP PR (09:00)
[2019-05-03] MEDS: QUETIAPINE 100 MG TAB PO ×2 (09:12→20:09)
[2019-05-03] MEDS: CITALOPRAM 20 MG TAB PO (09:13)
[2019-05-03] MEDS: DIAZEPAM 5 MG TAB PO ×2 (09:13→20:10)
[2019-05-03] MEDS: BENZTROPINE 1 MG TAB PO ×2 (09:13→20:09)
[2019-05-03] MEDS: DIVALPROEX SPRINKLE 125 MG CAP PO ×2 (11:09→21:13)
[2019-05-03] MEDS: BALSAM PERU/CASTOR OIL 60 GM TUBE TOP ×2 (11:09→21:13)
[2019-05-03] MEDS: SOD CHLORIDE 0.9% 1,000 ML IV (16:00)
[2019-05-03] MEDS ORDERED: INSULIN ASPART [NOVOLOG] 3 ML PEN SC (17:25)
[2019-05-03 21:30] LABS: PROCALCITONIN 0.39 ng/mL (0.00-0.10)
[2019-05-04] MEDS: PIPER-TAZO 3.375 GM IV (PMX) 100 ML IVPB ×5 (00:09→23:40)
[2019-05-04] MEDS: PANTOPRAZOLE 40 MG INJ IV (05:39)
[2019-05-04] MEDS: INSULIN ASPART [NOVOLOG] 3 ML PEN SC ×4 (07:55→20:08)
[2019-05-04 08:24] LABS: WHITE BLOOD COUNT 9.1 10^3/ul (4.8-10.8)
[2019-05-04 08:24] LABS: ABNORMAL IP MESSAGE 1; HEMATOCRIT 31.1 % (42.0-52.0); HEMOGLOBIN 9.8 g/dl (14.0-18.0); MEAN CORPUSCULAR HEMOGLOBIN 29.1 pg (29.0-33.0); MEAN CORPUSCULAR HGB CONC 31.5 g/dl (32.0-37.0); MEAN CORPUSCULAR VOLUME 92.3 fl (82.0-101.0); MEAN PLATELET VOLUME 10.5 fl (7.4-10.4); PLATELET COUNT 221 10^3/UL (140-415); POSITIVE DIFF @See below; RED BLOOD COUNT 3.37 10^6/ul (4.70-6.10); RED CELL DISTRIBUTION WIDTH 17.3 % (11.5-14.5)
[2019-05-04 08:27] LABS: ADD MAN DIFF? YES
[2019-05-04] MEDS: DIVALPROEX SPRINKLE 125 MG CAP PO ×2 (08:41→20:08)
[2019-05-04] MEDS: CITALOPRAM 20 MG TAB PO (08:42)
[2019-05-04] MEDS: QUETIAPINE 100 MG TAB PO ×2 (08:42→20:09)
[2019-05-04] MEDS: BENZTROPINE 1 MG TAB PO ×2 (08:42→20:09)
[2019-05-04] MEDS: DIAZEPAM 5 MG TAB PO ×2 (08:42→20:08)
[2019-05-04] MEDS: BALSAM PERU/CASTOR OIL 60 GM TUBE TOP ×2 (08:43→20:08)
[2019-05-04 08:54] LABS: PREALBUMIN 12.6 mg/dl (17.6-36.0)
[2019-05-04 09:16] LABS: BAND NEUTROPHILS #M 1.8 10^3/ul (0.0-0.6); BAND NEUTROPHILS % (M) 20 % (0-4); BURR CELLS 1+ (0-0); EOSINOPHILS % (M) 2 % (0-7); GIANT THROMBO% (M) 1 % (0-0); LYMPHOCYTES #M 0.1 10^3/ul (0.8-2.9); LYMPHOCYTES % (M) 2 % (15-51); MONOCYTE #M 0.2 10^3/ul (0.3-0.9); MONOCYTES % (M) 3 % (0-11); PLATELET ESTIMATE NORMAL; POIKILOCYTOSIS 1+ (0-0); POLYCHROMASIA 1+ (0-0); SEG NEUT #M 6.8 10^3/ul (1.6-7.5); SEGMENTED NEUTROPHILS (M) % 73 % (39-77); SMUDGE%M 3 % (0-0)
[2019-05-04] MEDS: TPN 1,000 ML IV ×3 (10:36→23:40)
[2019-05-04 10:46] LABS: ALANINE AMINOTRANSFERASE 64 IU/L (13-69); ALBUMIN 2.5 g/dl (3.3-4.9); ALBUMIN/GLOBULIN RATIO 0.65; ALKALINE PHOSPHATASE 151 IU/L (42-121); ANION GAP 7 (5-13); ASPARTATE AMINO TRANSFERASE 58 IU/L (15-46); BILIRUBIN,INDIRECT 1.1 mg/dl (0-1.1); BLOOD UREA NITROGEN 13 mg/dl (7-20); CALCIUM 8.2 mg/dl (8.4-10.2); CARBON DIOXIDE 27 mmol/L (21-31); CHLORIDE 105 mmol/L (97-110); CREATININE 0.56 mg/dl (0.61-1.24); Estimated GFR > 60 mL/min (>60); GLUCOSE 130 mg/dl (70-220); POTASSIUM 3.9 mmol/L (3.5-5.1); SODIUM 139 mmol/L (135-144); TOTAL PROTEIN 6.3 g/dl (6.1-8.1)
[2019-05-04 11:16] LABS: PHOSPHORUS 3.8 mg/dl (2.5-4.9)
[2019-05-04] MEDS: SOD CHLORIDE 0.9% 500 ML IV (12:15)
[2019-05-04 14:52] LABS: ANCA SCREEN NEGATIVE (NEGATIVE)
[2019-05-04] MEDS: SOD CHLORIDE 0.9% 1,000 ML IV ×2 (15:42→23:40)
[2019-05-04 16:31] LABS: MYELOPEROXIDASE ANTIBODY <1.0 AI; PROTEINASE-3 ANTIBODY <1.0 AI
[2019-05-05] MEDS: PIPER-TAZO 3.375 GM IV (PMX) 100 ML IVPB ×3 (05:11→18:43)
[2019-05-05] MEDS: PANTOPRAZOLE 40 MG INJ IV (05:11)
[2019-05-05 07:32] LABS: ALANINE AMINOTRANSFERASE 58 IU/L (13-69); ALBUMIN 2.3 g/dl (3.3-4.9); ALBUMIN/GLOBULIN RATIO 0.58; ALKALINE PHOSPHATASE 134 IU/L (42-121); ANION GAP 5 (5-13); ASPARTATE AMINO TRANSFERASE 28 IU/L (15-46); BILIRUBIN,INDIRECT 1.1 mg/dl (0-1.1); BILIRUBIN,TOTAL 1.8 mg/dl (0.2-1.3); BLOOD UREA NITROGEN 14 mg/dl (7-20); CALCIUM 8.2 mg/dl (8.4-10.2); CARBON DIOXIDE 28 mmol/L (21-31); CHLORIDE 104 mmol/L (97-110); CREATININE 0.53 mg/dl (0.61-1.24); Estimated GFR > 60 mL/min (>60); GLUCOSE 110 mg/dl (70-220); POTASSIUM 4.2 mmol/L (3.5-5.1); SODIUM 137 mmol/L (135-144); TOTAL PROTEIN 6.2 g/dl (6.1-8.1)
[2019-05-05 07:33] LABS: PHOSPHORUS 3.4 mg/dl (2.5-4.9)
[2019-05-05 07:33] LABS: MAGNESIUM 1.8 mg/dl (1.7-2.5)
[2019-05-05] MEDS: INSULIN ASPART [NOVOLOG] 3 ML PEN SC ×4 (07:55→20:09)
[2019-05-05] MEDS: QUETIAPINE 100 MG TAB PO ×2 (08:01→20:04)
[2019-05-05] MEDS: CITALOPRAM 20 MG TAB PO (08:02)
[2019-05-05] MEDS: BENZTROPINE 1 MG TAB PO ×2 (08:02→20:04)
[2019-05-05] MEDS: DIVALPROEX SPRINKLE 125 MG CAP PO ×2 (08:02→20:04)
[2019-05-05] MEDS: BALSAM PERU/CASTOR OIL 60 GM TUBE TOP ×2 (08:03→20:05)
[2019-05-05] MEDS: DIAZEPAM 5 MG TAB PO ×2 (08:06→20:05)
[2019-05-06] MEDS: PIPER-TAZO 3.375 GM IV (PMX) 100 ML IVPB ×4 (00:26→17:23)
[2019-05-06] MEDS: PANTOPRAZOLE 40 MG INJ IV (05:40)
[2019-05-06 06:58] LABS: PHOSPHORUS 3.5 mg/dl (2.5-4.9)
[2019-05-06 06:58] LABS: MAGNESIUM 1.7 mg/dl (1.7-2.5)
[2019-05-06 07:02] LABS: ALANINE AMINOTRANSFERASE 42 IU/L (13-69); ALBUMIN 2.6 g/dl (3.3-4.9); ALBUMIN/GLOBULIN RATIO 0.65; ALKALINE PHOSPHATASE 176 IU/L (42-121); ANION GAP 7 (5-13); ASPARTATE AMINO TRANSFERASE 22 IU/L (15-46); BILIRUBIN,INDIRECT 1.1 mg/dl (0-1.1); BILIRUBIN,TOTAL 2.2 mg/dl (0.2-1.3); BLOOD UREA NITROGEN 12 mg/dl (7-20); CALCIUM 8.2 mg/dl (8.4-10.2); CARBON DIOXIDE 27 mmol/L (21-31); CHLORIDE 103 mmol/L (97-110); CREATININE 0.62 mg/dl (0.61-1.24); Estimated GFR > 60 mL/min (>60); GLUCOSE 106 mg/dl (70-220); POTASSIUM 3.7 mmol/L (3.5-5.1); SODIUM 137 mmol/L (135-144); TOTAL PROTEIN 6.6 g/dl (6.1-8.1)
[2019-05-06] MEDS: INSULIN ASPART [NOVOLOG] 3 ML PEN SC ×4 (07:55→20:38)
[2019-05-06] MEDS: DIAZEPAM 5 MG TAB PO ×2 (08:46→20:38)
[2019-05-06] MEDS: QUETIAPINE 100 MG TAB PO ×2 (08:46→20:39)
[2019-05-06] MEDS: BENZTROPINE 1 MG TAB PO ×2 (08:46→20:39)
[2019-05-06] MEDS: DIVALPROEX SPRINKLE 125 MG CAP PO ×2 (08:50→20:39)
[2019-05-06] MEDS: BALSAM PERU/CASTOR OIL 60 GM TUBE TOP ×2 (08:51→20:40)
[2019-05-06] MEDS: CITALOPRAM 20 MG TAB PO (11:05)
[2019-05-07] MEDS: PANTOPRAZOLE 40 MG INJ IV (05:40)
[2019-05-07 07:04] LABS: ADD MAN DIFF? NO
[2019-05-07 07:14] LABS: WHITE BLOOD COUNT 6.8 10^3/ul (4.8-10.8)
[2019-05-07 07:14] LABS: ABNORMAL IP MESSAGE 1; BASOPHILS % 0.3 % (0.0-2.0); EOSINOPHILS # 0.1 10^3/ul (0.0-0.5); EOSINOPHILS % 0.7 % (0.0-7.0); HEMATOCRIT 32.2 % (42.0-52.0); HEMOGLOBIN 10.2 g/dl (14.0-18.0); LYMPHOCYTES # 0.4 10^3/ul (0.8-2.9); LYMPHOCYTES % 5.9 % (15.0-51.0); MEAN CORPUSCULAR HEMOGLOBIN 29.1 pg (29.0-33.0); MEAN CORPUSCULAR HGB CONC 31.7 g/dl (32.0-37.0); MEAN CORPUSCULAR VOLUME 91.7 fl (82.0-101.0); MEAN PLATELET VOLUME 10.4 fl (7.4-10.4); MONOCYTE # 0.5 10^3/ul (0.3-0.9); MONOCYTES % 7.4 % (0.0-11.0); NEUTROPHIL # 5.7 10^3/ul (1.6-7.5); NEUTROPHILS % 84.7 % (39.0-77.0); PLATELET COUNT 225 10^3/UL (140-415); POSITIVE DIFF @See below; RED BLOOD COUNT 3.51 10^6/ul (4.70-6.10); RED CELL DISTRIBUTION WIDTH 17.2 % (11.5-14.5)
[2019-05-07 07:43] LABS: ALANINE AMINOTRANSFERASE 37 IU/L (13-69); ALBUMIN 2.7 g/dl (3.3-4.9); ALBUMIN/GLOBULIN RATIO 0.65; ALKALINE PHOSPHATASE 220 IU/L (42-121); ANION GAP 8 (5-13); ASPARTATE AMINO TRANSFERASE 25 IU/L (15-46); BILIRUBIN,TOTAL 1.9 mg/dl (0.2-1.3); BLOOD UREA NITROGEN 13 mg/dl (7-20); CALCIUM 8.4 mg/dl (8.4-10.2); CARBON DIOXIDE 27 mmol/L (21-31); CHLORIDE 101 mmol/L (97-110); Estimated GFR > 60 mL/min (>60); GLUCOSE 118 mg/dl (70-220); POTASSIUM 3.8 mmol/L (3.5-5.1); SODIUM 136 mmol/L (135-144); TOTAL PROTEIN 6.8 g/dl (6.1-8.1)
[2019-05-07] MEDS: INSULIN ASPART [NOVOLOG] 3 ML PEN SC ×4 (07:55→20:18)
[2019-05-07] MEDS: BENZTROPINE 1 MG TAB PO ×2 (08:16→20:17)
[2019-05-07] MEDS: DIAZEPAM 5 MG TAB PO ×2 (08:16→20:17)
[2019-05-07] MEDS: DIVALPROEX SPRINKLE 125 MG CAP PO ×2 (08:16→20:17)
[2019-05-07] MEDS: CITALOPRAM 20 MG TAB PO (08:16)
[2019-05-07] MEDS: QUETIAPINE 100 MG TAB PO ×2 (08:16→20:17)
[2019-05-07] MEDS: BALSAM PERU/CASTOR OIL 60 GM TUBE TOP ×2 (08:17→20:17)
[2019-05-08] MEDS: PANTOPRAZOLE 40 MG INJ IV (05:43)
[2019-05-08] MEDS: DIAZEPAM 5 MG TAB PO ×2 (09:39→22:28)
[2019-05-08] MEDS: CITALOPRAM 20 MG TAB PO (09:39)
[2019-05-08] MEDS: BENZTROPINE 1 MG TAB PO ×2 (09:39→22:28)
[2019-05-08] MEDS: QUETIAPINE 100 MG TAB PO ×2 (09:39→22:29)
[2019-05-08] MEDS: DIVALPROEX SPRINKLE 125 MG CAP PO ×2 (09:39→22:28)
[2019-05-08] MEDS: BALSAM PERU/CASTOR OIL 60 GM TUBE TOP ×2 (09:40→21:00)
[2019-05-08] MEDS ORDERED: OXYCODONE/ACETAMINOPHEN (5/325) TAB PO (16:00)
[2019-05-09] MEDS: PANTOPRAZOLE (EC) 40 MG TAB PO (06:24)
[2019-05-09 07:06] LABS: ADD MAN DIFF? NO
[2019-05-09 07:11] LABS: ABNORMAL IP MESSAGE 1; BASOPHILS % 0.8 % (0.0-2.0); EOSINOPHILS # 0.1 10^3/ul (0.0-0.5); EOSINOPHILS % 2.2 % (0.0-7.0); HEMATOCRIT 31.8 % (42.0-52.0); HEMOGLOBIN 10.2 g/dl (14.0-18.0); LYMPHOCYTES # 0.4 10^3/ul (0.8-2.9); LYMPHOCYTES % 8.3 % (15.0-51.0); MEAN CORPUSCULAR HEMOGLOBIN 29.6 pg (29.0-33.0); MEAN CORPUSCULAR HGB CONC 32.1 g/dl (32.0-37.0); MEAN CORPUSCULAR VOLUME 92.2 fl (82.0-101.0); MEAN PLATELET VOLUME 10.4 fl (7.4-10.4); MONOCYTE # 0.5 10^3/ul (0.3-0.9); MONOCYTES % 9.7 % (0.0-11.0); NEUTROPHIL # 3.9 10^3/ul (1.6-7.5); NEUTROPHILS % 76.8 % (39.0-77.0); PLATELET COUNT 268 10^3/UL (140-415); POSITIVE DIFF @See below; RED BLOOD COUNT 3.45 10^6/ul (4.70-6.10); RED CELL DISTRIBUTION WIDTH 16.5 % (11.5-14.5)
[2019-05-09 07:11] LABS: WHITE BLOOD COUNT 5.1 10^3/ul (4.8-10.8)
[2019-05-09 07:35] LABS: PHOSPHORUS 3.8 mg/dl (2.5-4.9)
[2019-05-09 07:35] LABS: MAGNESIUM 1.6 mg/dl (1.7-2.5)
[2019-05-09 07:41] LABS: ALANINE AMINOTRANSFERASE 35 IU/L (13-69); ALBUMIN 2.4 g/dl (3.3-4.9); ALBUMIN/GLOBULIN RATIO 0.58; ALKALINE PHOSPHATASE 247 IU/L (42-121); ANION GAP 6 (5-13); ASPARTATE AMINO TRANSFERASE 23 IU/L (15-46); BILIRUBIN,INDIRECT 0.9 mg/dl (0-1.1); BILIRUBIN,TOTAL 0.9 mg/dl (0.2-1.3); BLOOD UREA NITROGEN 12 mg/dl (7-20); CALCIUM 8.3 mg/dl (8.4-10.2); CARBON DIOXIDE 30 mmol/L (21-31); CHLORIDE 99 mmol/L (97-110); CREATININE 0.64 mg/dl (0.61-1.24); Estimated GFR > 60 mL/min (>60); GLUCOSE 104 mg/dl (70-220); POTASSIUM 3.5 mmol/L (3.5-5.1); SODIUM 135 mmol/L (135-144); TOTAL PROTEIN 6.5 g/dl (6.1-8.1)
[2019-05-09] MEDS: DIVALPROEX SPRINKLE 125 MG CAP PO ×2 (08:31→22:08)
[2019-05-09] MEDS: BENZTROPINE 1 MG TAB PO ×2 (08:31→22:10)
[2019-05-09] MEDS: DIAZEPAM 5 MG TAB PO ×2 (08:31→22:07)
[2019-05-09] MEDS: QUETIAPINE 100 MG TAB PO ×2 (08:31→22:07)
[2019-05-09] MEDS: BALSAM PERU/CASTOR OIL 60 GM TUBE TOP ×2 (08:31→22:09)
[2019-05-09] MEDS: CITALOPRAM 20 MG TAB PO (08:31)
[2019-05-09] MEDS: MAGNESIUM SULFATE 2 GM/50 ML 50 ML IVPB (14:17)
[2019-05-09] MEDS: MESALAMINE (SR) 250 MG CAP PO ×2 (17:29→22:09)
[2019-05-10] MEDS: PANTOPRAZOLE (EC) 40 MG TAB PO (06:13)
[2019-05-10 07:09] LABS: ABNORMAL IP MESSAGE 1; HEMATOCRIT 39.4 % (42.0-52.0); HEMOGLOBIN 12.5 g/dl (14.0-18.0); MEAN CORPUSCULAR HEMOGLOBIN 28.9 pg (29.0-33.0); MEAN CORPUSCULAR HGB CONC 31.7 g/dl (32.0-37.0); MEAN PLATELET VOLUME 9.5 fl (7.4-10.4); PLATELET COUNT 289 10^3/UL (140-415); POSITIVE DIFF @See below; RED BLOOD COUNT 4.33 10^6/ul (4.70-6.10); RED CELL DISTRIBUTION WIDTH 16.4 % (11.5-14.5)
[2019-05-10 07:09] LABS: WHITE BLOOD COUNT 6.9 10^3/ul (4.8-10.8)
[2019-05-10 07:14] LABS: ADD MAN DIFF? YES
[2019-05-10 07:26] LABS: MAGNESIUM 2.1 mg/dl (1.7-2.5)
[2019-05-10 07:26] LABS: PHOSPHORUS 3.7 mg/dl (2.5-4.9)
[2019-05-10 07:30] LABS: ALANINE AMINOTRANSFERASE 33 IU/L (13-69); ALBUMIN 3.4 g/dl (3.3-4.9); ALBUMIN/GLOBULIN RATIO 0.68; ALKALINE PHOSPHATASE 288 IU/L (42-121); ANION GAP 10 (5-13); ASPARTATE AMINO TRANSFERASE 22 IU/L (15-46); BILIRUBIN,INDIRECT 0.7 mg/dl (0-1.1); BILIRUBIN,TOTAL 0.7 mg/dl (0.2-1.3); BLOOD UREA NITROGEN 11 mg/dl (7-20); CALCIUM 9.2 mg/dl (8.4-10.2); CARBON DIOXIDE 25 mmol/L (21-31); CHLORIDE 95 mmol/L (97-110); CREATININE 0.63 mg/dl (0.61-1.24); Estimated GFR > 60 mL/min (>60); GLUCOSE 119 mg/dl (70-220); POTASSIUM 4.3 mmol/L (3.5-5.1); SODIUM 130 mmol/L (135-144); TOTAL PROTEIN 8.4 g/dl (6.1-8.1)
[2019-05-10 08:58] LABS: BAND NEUTROPHILS #M 2.4 10^3/ul (0.0-0.6); BAND NEUTROPHILS % (M) 36 % (0-4); EOSINOPHILS % (M) 1 % (0-7); LYMPHOCYTES #M 0.3 10^3/ul (0.8-2.9); LYMPHOCYTES % (M) 5 % (15-51); METAMYELOCYTES #M 0.1 10^3/ul (0.0-0.0); METAMYELOCYTES %M 2 % (0-0); MONOCYTE #M 0.3 10^3/ul (0.3-0.9); MONOCYTES % (M) 5 % (0-11); MYELOCYTES #M 0.2 10^3/ul (0.0-0.0); MYELOCYTES % (M) 3 % (0-0); PLATELET ESTIMATE NORMAL; POLYCHROMASIA 1+ (0-0); SEG NEUT #M 3.5 10^3/ul (1.6-7.5); SEGMENTED NEUTROPHILS (M) % 48 % (39-77); SMUDGE%M 2 % (0-0)
[2019-05-10] MEDS: CITALOPRAM 20 MG TAB PO (10:08)
[2019-05-10] MEDS: BENZTROPINE 1 MG TAB PO (10:08)
[2019-05-10] MEDS: QUETIAPINE 100 MG TAB PO (10:09)
[2019-05-10] MEDS: DIVALPROEX SPRINKLE 125 MG CAP PO (10:09)
[2019-05-10] MEDS: DIAZEPAM 5 MG TAB PO (10:10)
[2019-05-10] MEDS: BALSAM PERU/CASTOR OIL 60 GM TUBE TOP (11:10)
[2019-05-10] MEDS: MESALAMINE (SR) 250 MG CAP PO ×3 (11:11→18:37)
== END 2019-05-10 20:35 | DRG 329 ==
LOC: 6WM 04-18 15:35 → E/R 12:35 → 6WM 17:30 → ICU 04-26 15:55 → 6WM 04-18 16:16 → ICU 04-26 16:50 → TEL 05-01 21:25
PROC: 0D1B0Z4 Bypass Ileum to Cutaneous, Open Approach (ICD-10-PCS; principal; 2019-04-21 15:00)
PROC: 0DJD4ZZ Inspection of Lower Intestinal Tract, Percutaneous Endoscopic Approach (ICD-10-PCS; 2019-04-21 15:00)
PROC: 0DTN0ZZ Resection of Sigmoid Colon, Open Approach (ICD-10-PCS; 2019-04-21 15:00)
PROC: 0D1M0Z4 Bypass Descending Colon to Cutaneous, Open Approach (ICD-10-PCS; 2019-04-21 15:00)
PROC: 0WQFXZ2 Repair Abdominal Wall, Stoma, External Approach (ICD-10-PCS; 2019-04-21 15:33)
PROC: 0DBN0ZZ Excision of Sigmoid Colon, Open Approach (ICD-10-PCS; 2019-04-21 15:33)
PROC: 0D1N0Z4 Bypass Sigmoid Colon to Cutaneous, Open Approach (ICD-10-PCS; 2019-04-21 15:33)
PROC: 30233N1 Transfusion of Nonautologous Red Blood Cells into Peripheral Vein, Percutaneous Approach (ICD-10-PCS; 2019-04-21 15:33)
PROC: 30233K1 Transfusion of Nonautologous Frozen Plasma into Peripheral Vein, Percutaneous Approach (ICD-10-PCS; 2019-04-21 15:33)
PROC: 5A1945Z Respiratory Ventilation, 24-96 Consecutive Hours (ICD-10-PCS; 2019-04-21 15:33)
DX: K50.012 Crohn's disease of small intestine with intestinal obstruction (principal); J96.01 Acute respiratory failure with hypoxia; K55.019 Acute (reversible) ischemia of small intestine, extent unspecified; R65.21 Severe sepsis with septic shock; A41.9 Sepsis, unspecified organism; I97.711 Intraoperative cardiac arrest during other surgery; F84.0 Autistic disorder; N17.9 Acute kidney failure, unspecified; K92.2 Gastrointestinal hemorrhage, unspecified; E87.2 Acidosis; E87.1 Hypo-osmolality and hyponatremia; D62 Acute posthemorrhagic anemia; K56.50 Intestinal adhesions [bands], unspecified as to partial versus complete obstruction; K91.30 Postprocedural intestinal obstruction, unspecified as to partial versus complete; K56.0 Paralytic ileus; T81.49XA Infection following a procedure, other surgical site, initial encounter; E83.42 Hypomagnesemia; I20.9 Angina pectoris, unspecified; E86.0 Dehydration; R14.0 Abdominal distension (gaseous); F32.9 Major depressive disorder, single episode, unspecified; Z53.31 Laparoscopic surgical procedure converted to open procedure; K56.41 Fecal impaction; I95.9 Hypotension, unspecified; D75.1 Secondary polycythemia; I73.9 Peripheral vascular disease, unspecified; D64.9 Anemia, unspecified; R00.1 Bradycardia, unspecified; B96.20 Unspecified Escherichia coli [E. coli] as the cause of diseases classified elsewhere; B96.89 Other specified bacterial agents as the cause of diseases classified elsewhere
CPT/HCPCS: 36415; 36430; 36573; 36600; 71045; 74018; 74176; 74177; 74250; 76705; 76775; 80048; 80053; 80069; 80076; 80202; 81001; 81003; 82306; 82550; 82553; 82570; 82607; 82652; 82803; 82962; 83520; 83605; 83690; 83735; 84100; 84134; 84145; 84155; 84295; 84300; 84443; 84478; 84484; 85014; 85018; 85025; 85610; 85651; 85730; 86021; 86140; 86850; 86900; 86901; 86920; 87040-91; 87070; 87075; 87081; 87086; 87102; 88304; 88305; 92526; 92610; 93005; 93306; 93922; 93926; 93970; 94002; 94003; 94770; 96374; 96375; 97110; 97116; 97162; 97164; 97165; 97167; 97530; 97535; 99285-25